=== PATIENT | female | born 1945 | race Two or more races ===

== ENCOUNTER 2024-01-01 09:15 | Outpatient (AMB) | payer OTHER, MEDICAID, SELFPAY ==
[2024-01-01 09:32] VITALS: BP 143/59; PULSE 61; RESP 18; TEMP 36.3; O2SAT 97; BMI 30.9
--- NOTE | 2024-01-01 09:32 | ORTHONT_ITS ---
Vital signs 01/01/24 09:32 Height 1.52 m Height Method Stated Weight 71.809 kg Weight Measurement Method Standing Scale BMI 30.9 BP 143/59 H Blood Pressure Source Automatic Cuff Blood Pressure Location Right Upper Arm Position Sitting Respiration 18 Pulse 61 Pulse Source Monitor Temp 97.3 F Temp Source Temporal Artery Scan Pulse Oximetry (%) 97 Oxygen Delivery Method Room Air Med/Allergies Allergies & Medications Allergies PCN Allergy (Mild, Uncoded 01/01/24 09:36) Rash Medication Reconciliation levothyroxine 25 mcg capsule 25 mcg PO QDAY 05/23/21 [History Confirmed 01/01/24] metformin 1,000 mg tablet 1,000 mg PO QDAY 05/23/21 [History Confirmed 01/01/24] estradiol 0.01% (0.1 mg/gram) vaginal cream (Estrace) 2 g vaginal DIRECTED 12/10/21 [History Confirmed 01/01/24] aspirin 81 mg tablet,delayed release 81 mg PO QDAY 07/03/23 [History Confirmed 07/03/23] atorvastatin 20 mg tablet 20 mg PO QDAY 01/01/24 [History Confirmed 01/01/24] baclofen 10 mg/5 mL (2 mg/mL) oral solution 10 mg PO QDAY 01/01/24 [History Confirmed 01/01/24] gabapentin 100 mg capsule 100 mg PO QDAY 01/01/24 [History Confirmed 01/01/24] glipizide 5 mg tablet 5 mg PO QDAY 01/01/24 [History Confirmed 01/01/24] lisinopril 10 mg tablet 10 mg PO QDAY 01/01/24 [History Confirmed 01/01/24] pantoprazole 20 mg tablet,delayed release 20 mg PO QDAY 01/01/24 [History Confirmed 01/01/24] Subjective Visit Visit for: new patient and knee Immunization / Flu Flu Vaccine in the Last 12 Months: No Flu Vaccine Exclusion Criteria: No Exclusion Criteria History of Present Illness Chief complaint: BILATERAL KNEE PAIN Patient is a pleasant 78-year-old female with bilateral knee pain worse on the left. She has a history of [id number] arthritis. She also has a history of diabetic neuropathy and numbness in her hands and legs. Her current A1c is controlled and is 7.2. She does have a history of varicose veins and has vitiligo. We discussed that she has tried multiple injections in the past clued hyaluronic acid cortisone injections and anti-inflammatories as well as physical therapy. She reports the pain is making her life miserable. Personal History Occupation: RETIRED Pain Pain level (0-10): 5 Pain duration: COMES AND GOES Pain location: anterior and posterior Pain quality: sharp, dull and aching Pain timing: increases with activity Ambulatory data Ambulatory device: cane Treatments Number of previous injections: 3 Improvement with previous injections: Yes Improvement with PT: No Improvement with NSAIDS: n/a Review of Systems Review of Systems: All systems negative unless otherwise noted in HPI. Exam Exam Patient is in no acute distress and is cooperative with the examination today. Breathing is nonlabored. In no respiratory distress. Bilateral extremities were evaluated and demonstrates sensation intact to light touch. Palpable pedal pulses are present. No significant edema is present. Bilateral hips were examined. The patient has no pain with log roll of the hips. Internal rotation to 30 degrees and external rotation to 30 degrees is painless. Negative FADIR. The left knee was examined. The left knee is in [varus] alignment. Range of motion from [0-115] degrees. Knee is stable to varus and valgus as well as AP translation with <5mm. Patient has a [negative] McMurrays. There is [no] pain with patellofemoral compression and [no] crepitus noted. The knee is [tender] to palpation [medially]. The right knee was also examined. The right knee is in [varus] alignment. Range of motion from [0-120] degrees. Knee is stable to varus and valgus as well as AP translation with <5mm. Patient has a [negative] McMurrays. There is [no] pain with patellofemoral compression and [no] crepitus noted. The knee is [tender] to palpation [medially]. X-rays demonstrate bilateral knee arthritis with significant varus deformity and medial compartment arthritis. Assessment and Plan Problem List (1) Degenerative arthritis of knee, bilateral: Status: Acute Plan: Patient is a pleasant 78-year-old female with bilateral knee arthritis worse on the left. She is complete joint space obliteration and the pain is affecting her quality life and happiness. She is tried multiple hyaluronic acid injections as well as cortisone injections and physical therapy and anti- inflammatories. She would like to proceed with surgery on the left. We discussed that we would like for her to go home if possible. The nature and purpose of the total knee replacement, alternative method(s) of treatment, the material risks involved, and the possibility of complications were fully explained to the patient. The patient does NOT have any of the following contraindications to TKA: - Active infection of the knee joint, OR - Active systemic bacteremia, OR - Active skin infection or open wound at surgical site, OR - Neuropathic arthritis, OR - Severe, rapidly progressive neurological disease, OR - Severe medical condition that makes risks of surgery outweigh the potential benefit The patient was told the most common risks and complications associated with a total knee replacement include, but are not limited to: blood clots in the leg, fatal pulmonary embolism, dislocation of the prosthesis, intraoperative and postoperative fractures of the femur or tibia, infection, failure of the prost hesis or grafting materials, complications from anesthesia, reactions to blood transfusions, postoperative leg length inequality, instability of the knee replacement, nerve damage or injury, vascular injury, delayed wound healing, infection, other injury or even . In addition, there are risks associated with anesthesia given during this operation. Also, the patient was told that after undergoing a total knee replacement there may still be persistent pain or disability. The patient was informed that the success of this operation in part depends upon the mechanical devices which are going to be implanted and that these devices can fail or malfunction, and may need to be repaired or replaced and there are no guarantees as to the longevity of this device or its parts and that it or its parts could fail prematurely. The patient was also notified that during the course of surgery, there may be a need to use bone graft from donors, and that any bone graft used will be carefully screened for communicable diseases, including AIDS, hepatitis, Yoni-Creutzfeldt, or other diseases, but despite the screening procedures, there is a small chance that they could contract one of these diseases. Finally, the patient was asked to follow completely and fully with all advice and recommended treatments, and that recovery and ultimate outcome are affected by their compliance with recommended treatment. We discussed the risks, benefits and treatment alternatives, and the patient is interested in proceeding with surgery. We will try to set this up as expeditiously as possible. Advanced Care Planning Discussion Advance care planning discussed with:: patient Office Procedures GNS Level of Care Nursing/Assessment Patient Status: Established Patient Nursing Assessment/Reassesment: Medication Reconciliation, Update PMH in EMR and Vital Signs Coordination of Care: Complex Care and Chronic Disease 1-5, Education Complex Pt/Fam, Consent,records obtained, informed consent, Results/Orders obtained and Staff clarify orders Established Patient Charge Established Patient Point Assignment: 95 Established Patient Point Charge: EP Level 3 (80-115) Past Medical History Past Medical History Have you ever been diagnosed with any of the following: Cardiology Problems Hypertension: Yes Respiratory Problems Smoking: No Smoking Exposure: No Endocrine Problems Diabetes Mellitus Type 2: Yes
== END 2024-01-01 10:38 | disposition home or self-care (01) ==
LOC: HODSRG 09:15
PROVIDERS: PCP Internal Medicine; Referring Provider Internal Medicine; Supervising Provider Orthopaedic Surgery Adult Reconstructive Orthopaedic Surgery; Visit Provider Orthopaedic Surgery Adult Reconstructive Orthopaedic Surgery
DX: M17.0 Bilateral primary osteoarthritis of knee (principal); I10 Essential (primary) hypertension; E11.9 Type 2 diabetes mellitus without complications
CPT/HCPCS: 99213; G0463

== ENCOUNTER → 2024-01-13 | Outpatient (CLI) | payer OTHER, MEDICAID, SELFPAY ==
[2024-01-13 11:00] LABS: Collection Type, Urine Clean Catch
[2024-01-13 11:14] LABS: Basophils % (Auto) 1 % (0-2.5); Eosinophils # (Auto) 0.1 Thou/mm3 (0.0-0.5); Eosinophils % (Auto) 1 % (0-10); Hematocrit 34.7 % (36.0-46.0); Hemoglobin 12.1 g/dL (12.0-16.0); Immature Granulocytes % (Auto) 0 % (0-0); Immature Granulocytes Auto 0.02 Thou/mm3 (0.00-0.00); Lymphocytes # (Auto) 1.7 Thou/mm3 (1.0-4.8); Lymphocytes % (Auto) 30 % (10-50); Mean Corpuscular HGB Conc 34.9 g/dl (31.0-37.0); Mean Corpuscular Hemoglobin 28.3 pg (25.0-35.0); Mean Corpuscular Volume 81 fL (80-100); Monocytes # (Auto) 0.4 Thou/mm3 (0.0-0.8); Monocytes % (Auto) 8 % (0-12); Neutrophils # (Auto) 3.4 Thou/mm3 (1.8-7.7); Neutrophils % (Auto) 60 % (37-80); Nucleated Red Blood Cell % 0 /100 WBC (0); Platelet Count 245 Thou/mm3 (140-440); RDW Standard Deviation 39.9 fL (36.4-46.3); Red Blood Count 4.28 Miln/mm3 (4.00-5.20); White Blood Count 5.6 Thou/mm3 (3.6-11.0)
[2024-01-13 11:18] LABS: Bacteria,Urine 3+; Bilirubin,Urine Negative (Negative); Blood,Urine Negative (Negative); Clarity,Urine Clear (Clear/Hazy); Color,Urine Lt-Yellow (Lt Yel-Yel); Glucose, Urine Negative (Negative); Hyaline Casts,Urine < 1 /hpf (0-1); Ketones,Urine Negative (Negative); Leukocyte Esterase,Urine Positive (Negative); Nitrite,Urine Negative (Negative); PH,Urine 7.5 (5.0-7.0); Protein,Urine Negative (Neg - Trace); RBC,Urine 6 /hpf (0-3); Specific Gravity,Urine 1.012 (1.001-1.035); Squamous Epithelial Cell,Urine < 1 /hpf (0-5); Urobilinogen,Urine Negative mg/dL (0.0-1.0); WBC,Urine 71 /hpf (0-5)
[2024-01-13 11:28] LABS: Creatinine MALB Rnd Ur 49 mg/dL (30-125); Microalbumin, Random Urine < 3 mg/L (0-300)
[2024-01-13 11:32] LABS: Glucose Estimated Average 146 mg/dL (80-131); Hemoglobin A1C 6.7 % Hgb (4.8-6.0)
[2024-01-13 11:36] LABS: Alanine Aminotransferase 13 U/L (10-49); Albumin, Serum 4.6 gm/dL (3.4-4.8); Albumin/Globulin Ratio 1.9 (1.2-2.2); Alkaline Phosphatase 87 U/L (46-116); Anion Gap 7 (7-16); Aspartate Amino Transferase 20 U/L (0-34); BUN/Creatinine Ratio 13 Ratio (12-20); Bilirubin,Total 0.9 mg/dL (0.3-1.2); Blood Urea Nitrogen 8 mg/dL (9-23); Calcium 9.5 mg/dL (8.3-10.6); Calcium (Corrected) 9.5 mg/dL (8.5-10.1); Cardiac Risk Estimate 3.4 RATIO (3.7-5.6); Chloride 96 mMol/L (98-107); Cholesterol 189 mg/dL (132-200); Creatinine (Component) 0.6 mg/dL (0.6-1.3); Globulin 2.4 gm/dL (2.3-3.5); Glucose 157 mg/dL (74-106); HDL Cholesterol 55 mg/dL (40-60); LDL Cholesterol,Calculated 113 mg/dL (0-130); Osmolality,Calculated 262 (275-295); Potassium 4.9 mMol/L (3.4-5.1); Sodium 130 mMol/L (136-145); Thyroid Stimulating Hormone 0.61 uIU/mL (0.55-4.78); Triglycerides 104 mg/dL (30-150); eGFR > 60 See Note
== END | disposition home or self-care (01) ==
PROVIDERS: PCP Internal Medicine; Referring Provider Internal Medicine; Visit Provider Internal Medicine
DX: E11.9 Type 2 diabetes mellitus without complications (principal); E07.9 Disorder of thyroid, unspecified; E78.5 Hyperlipidemia, unspecified; I10 Essential (primary) hypertension
CPT/HCPCS: 36415; 80053; 80061; 81001; 82043; 82570; 83036; 84443; 85025

== ENCOUNTER → 2024-03-17 | Outpatient (CLI) | payer OTHER, MEDICAID, SELFPAY ==
[2024-03-17 13:09] LABS: Collection Type, Urine Clean Catch
[2024-03-17 13:41] LABS: Bilirubin,Urine Negative (Negative); Blood,Urine Negative (Negative); Clarity,Urine Clear (Clear/Hazy); Color,Urine Lt-Yellow (Lt Yel-Yel); Glucose, Urine Negative (Negative); Ketones,Urine Negative (Negative); Leukocyte Esterase,Urine Positive (Negative); Nitrite,Urine Negative (Negative); Protein,Urine Negative (Neg - Trace); RBC,Urine 1 /hpf (0-3); Squamous Epithelial Cell,Urine 4 /hpf (0-5); Urobilinogen,Urine Negative mg/dL (0.0-1.0); WBC,Urine 18 /hpf (0-5)
[2024-03-17 14:12] LABS: Culture Indicated,Urine Yes
== END | disposition home or self-care (01) ==
LOC: SLDO 12:53
PROVIDERS: Referring Provider Internal Medicine; Visit Provider Internal Medicine
DX: N39.0 Urinary tract infection, site not specified (principal)
CPT/HCPCS: 81001; 87086

== ENCOUNTER → 2024-04-18 | Outpatient (CLI) | payer OTHER, MEDICAID, SELFPAY ==
[2024-04-18 15:33] LABS: Basophils % (Auto) 0 % (0-2.5); Eosinophils # (Auto) 0.1 Thou/mm3 (0.0-0.5); Eosinophils % (Auto) 1 % (0-10); Hematocrit 34.6 % (36.0-46.0); Hemoglobin 11.9 g/dL (12.0-16.0); Immature Granulocytes % (Auto) 0 % (0-0); Immature Granulocytes Auto 0.04 Thou/mm3 (0.00-0.00); Lymphocytes % (Auto) 23 % (10-50); Mean Corpuscular HGB Conc 34.4 g/dl (31.0-37.0); Mean Corpuscular Hemoglobin 28.3 pg (25.0-35.0); Mean Corpuscular Volume 82 fL (80-100); Monocytes # (Auto) 0.5 Thou/mm3 (0.0-0.8); Monocytes % (Auto) 6 % (0-12); Neutrophils # (Auto) 6.3 Thou/mm3 (1.8-7.7); Neutrophils % (Auto) 70 % (37-80); Nucleated Red Blood Cell % 0 /100 WBC (0); Platelet Count 274 Thou/mm3 (140-440); RDW Standard Deviation 41.1 fL (36.4-46.3); Red Blood Count 4.21 Miln/mm3 (4.00-5.20); White Blood Count 9.1 Thou/mm3 (3.6-11.0)
[2024-04-18 15:41] LABS: INR 1.1 (0.9-1.3); Prothrombin Time 11.7 Seconds (9.0-12.2)
[2024-04-18 15:44] LABS: Glucose Estimated Average 151 mg/dL (80-131); Hemoglobin A1C 6.9 % Hgb (4.8-6.0)
[2024-04-18 15:48] LABS: Alanine Aminotransferase 11 U/L (10-49); Albumin, Serum 4.5 gm/dL (3.4-4.8); Albumin/Globulin Ratio 1.9 (1.2-2.2); Alkaline Phosphatase 73 U/L (46-116); Anion Gap 7 (7-16); Aspartate Amino Transferase 18 U/L (0-34); BUN/Creatinine Ratio 22 Ratio (12-20); Bilirubin,Direct 0.2 mg/dL (0.0-0.3); Bilirubin,Total 0.6 mg/dL (0.3-1.2); Blood Urea Nitrogen 11 mg/dL (9-23); Calcium 9.6 mg/dL (8.3-10.6); Calcium (Corrected) 9.6 mg/dL (8.5-10.1); Carbon Dioxide 27.6 mMol/L (20.0-31.0); Cardiac Risk Estimate 3.1 RATIO (3.7-5.6); Chloride 99 mMol/L (98-107); Cholesterol 205 mg/dL (132-200); Creatinine (Component) 0.5 mg/dL (0.6-1.3); Globulin 2.4 gm/dL (2.3-3.5); Glucose 121 mg/dL (74-106); HDL Cholesterol 66 mg/dL (40-60); LDL Cholesterol,Calculated 111 mg/dL (0-130); Osmolality,Calculated 268 (275-295); Potassium 4.8 mMol/L (3.4-5.1); Sodium 134 mMol/L (136-145); Total Protein 6.9 gm/dL (5.7-8.2); Triglycerides 140 mg/dL (30-150); eGFR > 60 See Note
[2024-04-18 15:50] LABS: Creatinine MALB Rnd Ur 60 mg/dL (30-125); Microalbumin, Random Urine < 3 mg/L (0-300)
== END | disposition home or self-care (01) ==
LOC: COPL 14:22
PROVIDERS: PCP Internal Medicine; Referring Provider Internal Medicine; Visit Provider Internal Medicine
DX: E11.9 Type 2 diabetes mellitus without complications (principal); I10 Essential (primary) hypertension; E78.5 Hyperlipidemia, unspecified
CPT/HCPCS: 36415; 80053; 80061; 82043; 82248; 82570; 83036; 85025; 85610; 85730

== ENCOUNTER 2024-04-28 15:21 | Outpatient (AMB) | payer OTHER, MEDICAID, SELFPAY ==
[2024-04-28 15:35] VITALS: BP 127/74; PULSE 60; RESP 19; TEMP 36; O2SAT 97; BMI 31.1
--- NOTE | 2024-04-28 15:35 | PD.ORTHCLVIS ---
Vital signs 04/28/24 15:35 Height 1.52 m Height Method Stated Weight 71.894 kg Weight Measurement Method Standing Scale BMI 31.1 BP 127/74 Blood Pressure Source Automatic Cuff Blood Pressure Location Left Upper Arm Position Sitting Respiration 19 Pulse 60 Pulse Source Monitor Temp 96.8 F Temp Source Temporal Artery Scan Pulse Oximetry (%) 97 Oxygen Delivery Method Room Air Med/Allergies Allergies & Medications Allergies PCN Allergy (Mild, Uncoded 04/28/24 15:36) Rash Medication Reconciliation levothyroxine 25 mcg capsule 25 mcg PO QDAY 05/23/21 [History Confirmed 04/28/24] metformin 1,000 mg tablet 1,000 mg PO QDAY 05/23/21 [History Confirmed 04/28/24] estradiol 0.01% (0.1 mg/gram) vaginal cream (Estrace) 2 g vaginal DIRECTED 12/10/21 [History Confirmed 04/28/24] aspirin 81 mg tablet,delayed release 81 mg PO QDAY 07/03/23 [History Confirmed 04/28/24] atorvastatin 20 mg tablet 20 mg PO QDAY 01/01/24 [History Confirmed 04/28/24] baclofen 10 mg/5 mL (2 mg/mL) oral solution 10 mg PO QDAY 01/01/24 [History Confirmed 04/28/24] gabapentin 100 mg capsule 100 mg PO QDAY 01/01/24 [History Confirmed 04/28/24] glipizide 5 mg tablet 5 mg PO QDAY 01/01/24 [History Confirmed 04/28/24] lisinopril 10 mg tablet 10 mg PO QDAY 01/01/24 [History Confirmed 04/28/24] pantoprazole 20 mg tablet,delayed release 20 mg PO QDAY 01/01/24 [History Confirmed 04/28/24] Exam Exam Patient is in no acute distress and is cooperative with the examination today. Breathing is nonlabored. In no respiratory distress. Bilateral extremities were evaluated and demonstrates sensation intact to light touch. Palpable pedal pulses are present. No significant edema is present. Bilateral hips were examined. The patient has no pain with log roll of the hips. Internal rotation to 30 degrees and external rotation to 30 degrees is painless. Negative FADIR. The left knee was examined. The left knee is in [varus] alignment. Range of motion from [0-115] degrees. Knee is stable to varus and valgus as well as AP translation with <5mm. Patient has a [negative] McMurrays. There is [no] pain with patellofemoral compression and [no] crepitus noted. The knee is [tender] to palpation [medially]. The right knee was also examined. The right knee is in [varus] alignment. Range of motion from [0-120] degrees. Knee is stable to varus and valgus as well as AP translation with <5mm. Patient has a [negative] McMurrays. There is [no] pain with patellofemoral compression and [no] crepitus noted. The knee is [tender] to palpation [medially]. X-rays demonstrate bilateral knee arthritis with significant varus deformity and medial compartment arthritis. Assessment and Plan Problem List (1) Degenerative arthritis of knee, bilateral: Status: Acute Plan: Patient is a pleasant 78-year-old female with bilateral knee arthritis worse on the left. She is complete joint space obliteration and the pain is affecting her quality life and happiness. She would like bilateral knee injections today. She would like to get surgery around the summertime as her son is a professor. Recommend knee cortisone injections as patient would like to proceed with conservative treatment at this time. The risks and benefits of the procedure were reviewed with the patient and patient gave verbal consent to continue with the procedure. Procedure: performed by Dr. Barakat Using sterile technique the Bilateral knees were thoroughly prepped with alcohol, and approximately 1 cc of Kenalog 40 mg/mL and 4 cc of 1% lidocaine was injected into each knee without resistance into the medial tibial femoral joint space. The patient tolerated the procedure. Advanced Care Planning Discussion Advance care planning discussed with:: patient Office Procedures GNS Level of Care Nursing/Assessment Patient Status: Established Patient Nursing Assessment/Reassesment: Medication Reconciliation, Update PMH in EMR and Vital Signs Coordination of Care: Complex Care and Chronic Disease 1-5, Education Complex Pt/Fam, Consent,records obtained, informed consent, Results/Orders obtained and Staff clarify orders Established Patient Charge Established Patient Point Assignment: 95 Established Patient Point Charge: EP Level 3 (80-115) Surgical Proc/IM SQ injection Major Surgical Procedure: Yes (BILATERAL KNEE INJECTION) Medication Given Medication Given Medication Given: Yes Documented Dose Given: 8 Route: Infiitration Medication Given Medication Given Medication Given: Yes Documented Dose Given: 2 Route: Infiitration Office Meds Xylocaine 10 mg/mL (1 %) injection solution Performing Provider: Malik Barakat MD Performing Location: [facility] Administered by: Malik Barakat MD on 04/28/24 15:51 Dose Route Admin Location Dispensed Lot Number Expiration Date [facility] [employer] 40 mL Infiltration 40 mL [id number] 08/16/27 25707-874-20 [facility] triamcinolone acetonide 40 mg/mL suspension for injection Performing Provider: Malik Barakat MD Performing Location: [facility] Administered by: Malik Barakat MD on 04/28/24 15:51 Dose Route Admin Location Dispensed Lot Number Expiration Date [facility] [employer] 80 mg intra-articular 2 mL [id number] 10/15/25 8269-2050-78 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 [place] Intake Visit Data Collection New Patient or Established: Established Patient (seen at [facility] within 3 years) Reason for Visit:: BL KNEE PAIN F/U Seen by Clinical Staff ONLY (RN/MA): No Wine Maker Required: No PCP or OBGYN visit in last 3 months: Yes Hx Now: No Do You Feel Safe at Home: Yes Authorities Contacted: N/A Questionairres Past Medical History Past Medical History Have you ever been diagnosed with any of the following: Cardiology Problems Hypertension: Yes Respiratory Problems Smoking: No Smoking Exposure: No Endocrine Problems Diabetes Mellitus Type 2: Yes Subjective Visit Visit for: follow up visit and knee Immunization / Flu Flu Vaccine in the Last 12 Months: No Flu Vaccine Exclusion Criteria: No Exclusion Criteria History of Present Illness Chief complaint: bilateral knee pain MS alejandro 78-year-old female with bilateral knee pain and bilateral knee arthritis. This has been ongoing for several years. She had a cardiac clearance done over a year ago. Since then she is not sure if she will clear again. She would like to get rid stratified again which I think is reasonable. She is failed conservative treatment. She would like bilateral knee injections today which is reasonable. X-rays demonstrate bilateral knee arthritis of significant severity. Pain Pain level (0-10): 10 Pain duration: CONSTANT Pain location: inside (medial), outside (lateral) and anterior Pain quality: sharp and dull Pain timing: increases with activity and stairs Associated signs & symptoms: weakness Ambulatory data Ambulatory device: cane Treatments Improvement with previous injections: No Improvement with PT: No Improvement with NSAIDS: no Review of Systems Review of Systems: All systems negative unless otherwise noted in HPI.
== END 2024-04-28 15:56 | disposition home or self-care (01) ==
LOC: HODSRG 15:21
PROVIDERS: PCP Internal Medicine; Supervising Provider Orthopaedic Surgery Adult Reconstructive Orthopaedic Surgery; Visit Provider Orthopaedic Surgery Adult Reconstructive Orthopaedic Surgery
DX: M17.0 Bilateral primary osteoarthritis of knee (principal); I10 Essential (primary) hypertension
CPT/HCPCS: 20610; 99213; J3301; J3490; G0463

== ENCOUNTER → 2024-05-13 | Outpatient (CLI) | payer OTHER, MEDICAID, SELFPAY ==
[2024-05-13 16:37] LABS: Collection Type, Urine Clean Catch
[2024-05-13 17:47] LABS: Bacteria,Urine Rare; Bilirubin,Urine Negative (Negative); Blood,Urine Negative (Negative); Clarity,Urine Clear (Clear/Hazy); Color,Urine Lt-Yellow (Lt Yel-Yel); Glucose, Urine Negative (Negative); Ketones,Urine Negative (Negative); Leukocyte Esterase,Urine Positive (Negative); Nitrite,Urine Negative (Negative); Protein,Urine Negative (Neg - Trace); RBC,Urine 3 /hpf (0-3); Specific Gravity,Urine 1.008 (1.001-1.035); Squamous Epithelial Cell,Urine < 1 /hpf (0-5); Urobilinogen,Urine Negative mg/dL (0.0-1.0); WBC,Urine 27 /hpf (0-5)
[2024-05-13 17:54] LABS: Culture Indicated,Urine Yes
== END | disposition home or self-care (01) ==
PROVIDERS: PCP Internal Medicine; Referring Provider Internal Medicine; Visit Provider Internal Medicine
DX: N39.0 Urinary tract infection, site not specified (principal)
CPT/HCPCS: 81001; 87077; 87086; 87186

== ENCOUNTER → 2024-06-14 | Outpatient (CLI) | payer OTHER, MEDICAID, SELFPAY ==
[2024-06-14 10:06] LABS: Collection Type, Urine Clean Catch
[2024-06-14 10:43] LABS: Bacteria,Urine 1+; Bilirubin,Urine Negative (Negative); Blood,Urine Negative (Negative); Clarity,Urine Clear (Clear/Hazy); Color,Urine Yellow (Lt Yel-Yel); Glucose, Urine Negative (Negative); Ketones,Urine Negative (Negative); Leukocyte Esterase,Urine Positive (Negative); Nitrite,Urine Negative (Negative); Protein,Urine Negative (Neg - Trace); RBC,Urine 4 /hpf (0-3); Specific Gravity,Urine 1.014 (1.001-1.035); Squamous Epithelial Cell,Urine 1 /hpf (0-5); Urobilinogen,Urine Negative mg/dL (0.0-1.0); WBC,Urine 32 /hpf (0-5)
[2024-06-14 10:44] LABS: Culture Indicated,Urine Yes
== END | disposition home or self-care (01) ==
LOC: SLDO 09:50
PROVIDERS: PCP Internal Medicine; Referring Provider Internal Medicine; Visit Provider Internal Medicine
DX: N39.0 Urinary tract infection, site not specified (principal)
CPT/HCPCS: 81001; 87077; 87086; 87186

== ENCOUNTER → 2024-06-29 | Outpatient (CLI) | payer OTHER, MEDICAID, SELFPAY ==
--- NOTE | 2024-06-29 14:00 | XR_ITS ---
Examination: Retroperitoneal ultrasound, complete Technique: Multiple high resolution grayscale images of the retroperitoneum obtained, including kidneys and bladder. Exam date and time:June 29, 2024 1407 hours INDICATIONS: Bilateral flank pain beginning 4 years ago FINDINGS: Right kidney 10.9 cm cortex 1.6 cm Left kidney 12.0 cm cortex 2.1 cm Left renal lower pole cyst 7 mm Multiple left renal calculi, the largest in the lower pole 5 x 5 mm Moderate renal parenchymal scar formation Minimal right hydronephrosis No bladder mass or bladder calculi Bladder prevoid volume 97 cc IMPRESSION: Minimal right hydronephrosis Multiple nonobstructing left renal calculus
== END | disposition home or self-care (01) ==
PROVIDERS: PCP Internal Medicine; Referring Provider Internal Medicine; Visit Provider Internal Medicine
DX: N13.30 Unspecified hydronephrosis (principal); N20.0 Calculus of kidney
CPT/HCPCS: 76770

== ENCOUNTER 2024-07-07 13:20 | Outpatient (AMB) | payer OTHER, MEDICAID, SELFPAY ==
[2024-07-07 13:31] VITALS: BP 117/73; PULSE 74; RESP 18; TEMP 36; O2SAT 97; BMI 29.7
--- NOTE | 2024-07-07 13:31 | PD.ORTHCLVIS ---
Vital signs 07/07/24 13:31 Height 1.52 m Height Method Stated Weight 68.634 kg Weight Measurement Method Standing Scale BMI 29.7 BP 117/73 Blood Pressure Source Automatic Cuff Blood Pressure Location Left Upper Arm Position Sitting Respiration 18 Pulse 74 Pulse Source Monitor Temp 96.8 F Temp Source Temporal Artery Scan Pulse Oximetry (%) 97 Oxygen Delivery Method Room Air Med/Allergies Allergies & Medications Allergies PCN Allergy (Mild, Uncoded 07/07/24 13:32) Rash Medication Reconciliation levothyroxine 25 mcg capsule 25 mcg PO QDAY 05/23/21 [History Confirmed 07/07/24] metformin 1,000 mg tablet 1,000 mg PO QDAY 05/23/21 [History Confirmed 07/07/24] estradiol 0.01% (0.1 mg/gram) vaginal cream (Estrace) 2 g vaginal DIRECTED 12/10/21 [History Confirmed 07/07/24] aspirin 81 mg tablet,delayed release 81 mg PO QDAY 07/03/23 [History Confirmed 07/07/24] atorvastatin 20 mg tablet 20 mg PO QDAY 01/01/24 [History Confirmed 07/07/24] baclofen 10 mg/5 mL (2 mg/mL) oral solution 10 mg PO QDAY 01/01/24 [History Confirmed 07/07/24] gabapentin 100 mg capsule 100 mg PO QDAY 01/01/24 [History Confirmed 07/07/24] glipizide 5 mg tablet 5 mg PO QDAY 01/01/24 [History Confirmed 07/07/24] lisinopril 10 mg tablet 10 mg PO QDAY 01/01/24 [History Confirmed 07/07/24] pantoprazole 20 mg tablet,delayed release 20 mg PO QDAY 01/01/24 [History Confirmed 07/07/24] Exam Exam Patient is in no acute distress and is cooperative with the examination today. Breathing is nonlabored. In no respiratory distress. Bilateral extremities were evaluated and demonstrates sensation intact to light touch. Palpable pedal pulses are present. No significant edema is present. Bilateral hips were examined. The patient has no pain with log roll of the hips. Internal rotation to 30 degrees and external rotation to 30 degrees is painless. Negative FADIR. The left knee was examined. The left knee is in [varus] alignment. Range of motion from [0-115] degrees. Knee is stable to varus and valgus as well as AP translation with <5mm. Patient has a [negative] McMurrays. There is [no] pain with patellofemoral compression and [no] crepitus noted. The knee is [tender] to palpation [medially]. The right knee was also examined. The right knee is in [varus] alignment. Range of motion from [0-120] degrees. Knee is stable to varus and valgus as well as AP translation with <5mm. Patient has a [negative] McMurrays. There is [no] pain with patellofemoral compression and [no] crepitus noted. The knee is [tender] to palpation [medially]. X-rays demonstrate bilateral knee arthritis with significant varus deformity and medial compartment arthritis. Assessment and Plan Problem List (1) Degenerative arthritis of knee, bilateral: Status: Acute Plan: Patient is a pleasant 78-year-old female with bilateral knee arthritis worse on the left. She is complete joint space obliteration and the pain is affecting her quality life and happiness. We just discussed total knee replacement. The right side is significantly worse and we will start with side. We have tried multiple injections as well as physical therapy and anti-inflammatories in the past The nature and purpose of the total knee replacement, alternative method(s) of treatment, the material risks involved, and the possibility of complications were fully explained to the patient. The patient does NOT have any of the following contraindications to TKA: - Active infection of the knee joint, OR - Active systemic bacteremia, OR - Active skin infection or open wound at surgical site, OR - Neuropathic arthritis, OR - Severe, rapidly progressive neurological disease, OR - Severe medical condition that makes risks of surgery outweigh the potential benefit The patient was told the most common risks and complications associated with a total knee replacement include, but are not limited to: blood clots in the leg, fatal pulmonary embolism, dislocation of the prosthesis, intraoperative and postoperative fractures of the femur or tibia, infection, failure of the prosthesis or grafting materials, complications from anesthesia, reactions to blood transfusions, postoperative leg length inequality, instability of the knee replacement, nerve damage or injury, vascular injury, delayed wound healing, infection, other injury or even . In addition, there are risks associated with anesthesia given during this operation. Also, the patient was told that after undergoing a total knee replacement there may still be persistent pain or disability. The patient was informed that the success of this operation in part depends upon the mechanical devices which are going to be implanted and that these devices can fail or malfunction, and may need to be repaired or replaced and there are no guarantees as to the longevity of this device or its parts and that it or its parts could fail prematurely. The patient was also notified that during the course of surgery, there may be a need to use bone graft from donors, and that any bone graft used will be carefully screened for communicable diseases, including AIDS, hepatitis, Yoni-Creutzfeldt, or other diseases, but despite the screening procedures, there is a small chance that they could contract one of these diseases. Finally, the patient was asked to follow completely and fully with all advice and recommended treatments, and that recovery and ultimate outcome are affected by their compliance with recommended treatment. We discussed the risks, benefits and treatment alternatives, and the patient is interested in proceeding with surgery. We will try to set this up as expeditiously as possible. Advanced Care Planning Discussion Advance care planning discussed with:: patient Office Procedures GNS Level of Care Nursing/Assessment Patient Status: Established Patient Nursing Assessment/Reassesment: Medication Reconciliation, Update PMH in EMR and Vital Signs Coordination of Care: Complex Care and Chronic Disease 1-5, Education Complex Pt/Fam, Consent,records obtained, informed consent, Results/Orders obtained and Staff clarify orders Established Patient Charge Established Patient Point Assignment: 95 Established Patient Point Charge: EP Level 3 (80-115) MA Intake Visit Data Collection Reason for Visit:: FOLLOW UP BL KNEE PAIN/R>L Seen by Clinical Staff ONLY (RN/MA): No Wallpaper Inspector And Shipper Required: No PCP or OBGYN visit in last 3 months: Yes Hx Now: No Do You Feel Safe at Home: Yes Authorities Contacted: N/A Questionairres Past Medical History Past Medical History Have you ever been diagnosed with any of the following: Cardiology Problems Hypertension: Yes Respiratory Problems Smoking: No Smoking Exposure: No Endocrine Problems Diabetes Mellitus Type 2: Yes Subjective Visit Visit for: follow up visit and knee Immunization / Flu Flu Vaccine in the Last 12 Months: No Flu Vaccine Exclusion Criteria: No Exclusion Criteria History of Present Illness Chief complaint: RIGHT WORSE THAN LEFT MS pleasant 78-year-old female with bilateral knee pain and bilateral knee arthritis. This has been ongoing for several years. She had a cardiac clearance done over a year ago. Since then she is not sure if she will clear again. She would like to get rid stratified again which I think is reasonable. She has failed conservative management. The right knee hurts significantly more than the left. We discussed doing knee replacement previously and she is waiting for her son to be out of school as he is a professor Pain Pain level (0-10): 6 Pain duration: CONSTANT Pain location: inside (medial) and anterior Pain quality: sharp, dull, aching and other (specify) (RUBBING) Pain timing: night, increases with activity and stairs Associated signs & symptoms: weakness Ambulatory data Ambulatory device: cane Treatments Improvement with previous injections: No Improvement with PT: No Improvement with NSAIDS: no Review of Systems Review of Systems: All systems negative unless otherwise noted in HPI.
== END 2024-07-07 13:42 | disposition home or self-care (01) ==
LOC: HODSRG 13:20
PROVIDERS: PCP Internal Medicine; Referring Provider Internal Medicine; Supervising Provider Orthopaedic Surgery Adult Reconstructive Orthopaedic Surgery; Visit Provider Orthopaedic Surgery Adult Reconstructive Orthopaedic Surgery
DX: M17.0 Bilateral primary osteoarthritis of knee (principal); M21.162 Varus deformity, not elsewhere classified, left knee; M21.161 Varus deformity, not elsewhere classified, right knee; I10 Essential (primary) hypertension; E11.9 Type 2 diabetes mellitus without complications
CPT/HCPCS: 99213; G0463

== ENCOUNTER → 2024-07-18 | Outpatient (CLI) | payer OTHER, MEDICAID, SELFPAY ==
[2024-07-18 13:26] LABS: Basophils % (Auto) 1 % (0-2.5); Eosinophils # (Auto) 0.1 Thou/mm3 (0.0-0.5); Eosinophils % (Auto) 1 % (0-10); Hematocrit 35.4 % (36.0-46.0); Immature Granulocytes % (Auto) 1 % (0-0); Immature Granulocytes Auto 0.04 Thou/mm3 (0.00-0.00); Lymphocytes # (Auto) 1.8 Thou/mm3 (1.0-4.8); Lymphocytes % (Auto) 22 % (10-50); Mean Corpuscular HGB Conc 33.9 g/dl (31.0-37.0); Mean Corpuscular Hemoglobin 29.3 pg (25.0-35.0); Mean Corpuscular Volume 86 fL (80-100); Monocytes # (Auto) 0.5 Thou/mm3 (0.0-0.8); Monocytes % (Auto) 6 % (0-12); Neutrophils # (Auto) 5.8 Thou/mm3 (1.8-7.7); Neutrophils % (Auto) 70 % (37-80); Nucleated Red Blood Cell % 0 /100 WBC (0); Platelet Count 286 Thou/mm3 (140-440); RDW Standard Deviation 44.5 fL (36.4-46.3); White Blood Count 8.2 Thou/mm3 (3.6-11.0)
[2024-07-18 13:36] LABS: INR 1.1 (0.9-1.3); Partial Thromboplastin Time 28.9 Seconds (22.0-36.0); Prothrombin Time 11.8 Seconds (9.0-12.2)
[2024-07-18 13:37] LABS: Alanine Aminotransferase 11 U/L (10-49); Albumin, Serum 4.2 gm/dL (3.4-4.8); Albumin/Globulin Ratio 1.9 (1.2-2.2); Alkaline Phosphatase 84 U/L (46-116); Anion Gap 8 (7-16); Aspartate Amino Transferase 16 U/L (0-34); BUN/Creatinine Ratio 16 Ratio (12-20); Bilirubin,Total 0.5 mg/dL (0.3-1.2); Blood Urea Nitrogen 8 mg/dL (9-23); Calcium 8.8 mg/dL (8.3-10.6); Calcium (Corrected) 8.8 mg/dL (8.5-10.1); Carbon Dioxide 26.6 mMol/L (20.0-31.0); Chloride 107 mMol/L (98-107); Creatinine (Component) 0.5 mg/dL (0.6-1.3); Globulin 2.2 gm/dL (2.3-3.5); Glucose 111 mg/dL (74-106); Osmolality,Calculated 282 (275-295); Potassium 4.4 mMol/L (3.4-5.1); Sodium 142 mMol/L (136-145); Total Protein 6.4 gm/dL (5.7-8.2); eGFR > 60 See Note
== END | disposition home or self-care (01) ==
PROVIDERS: PCP Internal Medicine; Referring Provider Internal Medicine; Visit Provider Internal Medicine
DX: Z00.00 Encounter for general adult medical examination without abnormal findings (principal); E11.42 Type 2 diabetes mellitus with diabetic polyneuropathy; I10 Essential (primary) hypertension; E78.5 Hyperlipidemia, unspecified
CPT/HCPCS: 36415; 80053; 85025; 85610; 85730

== ENCOUNTER → 2024-07-28 | Outpatient (CLI) | payer OTHER, MEDICAID, SELFPAY ==
--- NOTE | 2024-07-28 16:49 | XR_ITS ---
Examination: Bilateral knees 2 views Bilateral knee left lateral knee 2 views Bilateral axillae single view TECHNIQUE: Bilateral AP knees standing single view, bilateral PA knees standing single view flexion, Standing right laterally left lateral knee 2 views Bilateral axillae single view total 5 views Date and time: July 28, 2024 1714 hours INDICATIONS: Knee pain years. FINDINGS: Prominent osteopenia Bilateral severe narrowing medial joint spaces, bone on bone Advanced osteoarthritis patellofemoral and lateral joint spaces bilaterally No fractures or patellar dislocations IMPRESSION: Advanced tricompartment osteoarthritis including severe bilateral narrowing medial joint spaces, bone on bone
== END | disposition home or self-care (01) ==
PROVIDERS: PCP Internal Medicine; Referring Provider Orthopaedic Surgery Adult Reconstructive Orthopaedic Surgery; Visit Provider Orthopaedic Surgery Adult Reconstructive Orthopaedic Surgery
DX: M17.0 Bilateral primary osteoarthritis of knee (principal); M85.862 Other specified disorders of bone density and structure, left lower leg; M85.861 Other specified disorders of bone density and structure, right lower leg
CPT/HCPCS: 73564

== ENCOUNTER 2024-08-09 10:37 | Outpatient (AMB) | payer OTHER, MEDICAID, SELFPAY ==
[2024-08-09 10:51] VITALS: BP 147/78; PULSE 75; RESP 19; TEMP 36.8; O2SAT 97; BMI 30.1
--- NOTE | 2024-08-09 10:51 | PD.ORTHCLVIS ---
Vital signs 08/09/24 10:51 Height 1.52 m Height Method Stated Weight 69.541 kg Weight Measurement Method Standing Scale BMI 30.1 BP 147/78 H Blood Pressure Source Automatic Cuff Blood Pressure Location Left Upper Arm Position Sitting Respiration 19 Pulse 75 Pulse Source Monitor Temp 98.2 F Temp Source Temporal Artery Scan Pulse Oximetry (%) 97 Oxygen Delivery Method Room Air Med/Allergies Allergies & Medications Allergies PCN Allergy (Mild, Uncoded 08/09/24 10:52) Rash Medication Reconciliation levothyroxine 25 mcg capsule 25 mcg PO QDAY 05/23/21 [History Confirmed 08/09/24] metformin 1,000 mg tablet 1,000 mg PO QDAY 05/23/21 [History Confirmed 08/09/24] estradiol 0.01% (0.1 mg/gram) vaginal cream (Estrace) 2 g vaginal DIRECTED 12/10/21 [History Confirmed 08/09/24] aspirin 81 mg tablet,delayed release 81 mg PO QDAY 07/03/23 [History Confirmed 08/09/24] atorvastatin 20 mg tablet 20 mg PO QDAY 01/01/24 [History Confirmed 08/09/24] baclofen 10 mg/5 mL (2 mg/mL) oral solution 10 mg PO QDAY 01/01/24 [History Confirmed 08/09/24] gabapentin 100 mg capsule 100 mg PO QDAY 01/01/24 [History Confirmed 08/09/24] glipizide 5 mg tablet 5 mg PO QDAY 01/01/24 [History Confirmed 08/09/24] lisinopril 10 mg tablet 10 mg PO QDAY 01/01/24 [History Confirmed 08/09/24] pantoprazole 20 mg tablet,delayed release 20 mg PO QDAY 01/01/24 [History Confirmed 08/09/24] Exam Exam Patient is in no acute distress and is cooperative with the examination today. Breathing is nonlabored. In no respiratory distress. Bilateral extremities were evaluated and demonstrates sensation intact to light touch. Palpable pedal pulses are present. No significant edema is present. Bilateral hips were examined. The patient has no pain with log roll of the hips. Internal rotation to 30 degrees and external rotation to 30 degrees is painless. Negative FADIR. The left knee was examined. The left knee is in [varus] alignment. Range of motion from [0-115] degrees. Knee is stable to varus and valgus as well as AP translation with <5mm. Patient has a [negative] McMurrays. There is [no] pain with patellofemoral compression and [no] crepitus noted. The knee is [tender] to palpation [medially]. The right knee was also examined. The right knee is in [varus] alignment. Range of motion from [0-120] degrees. Knee is stable to varus and valgus as well as AP translation with <5mm. Patient has a [negative] McMurrays. There is [no] pain with patellofemoral compression and [no] crepitus noted. The knee is [tender] to palpation [medially]. X-rays demonstrate bilateral knee arthritis with significant varus deformity and medial compartment arthritis. Assessment and Plan Problem List (1) Degenerative arthritis of knee, bilateral: Status: Acute Plan: Patient is a pleasant 78-year-old female with bilateral knee arthritis worse on the left. She is complete joint space obliteration and the pain is affecting her quality life and happiness. We just discussed total knee replacement. The right side is significantly worse and we will start with side. We have tried multiple injections as well as physical therapy and anti-inflammatories in the past We will plan for surgery on the right knee. She would like a cortisone injection on the left knee as well today Recommend knee cortisone injection as patient would like to proceed with conservative treatment at this time. The risks and benefits of the procedure were reviewed with the patient and patient gave verbal consent to continue with the procedure. Procedure: performed by Dr. Barakat Using sterile technique the left knee was thoroughly prepped with alcohol, and approximately 1 cc of Kenalog 40 mg/mL and 4 cc of 1% lidocaine was injected without resistance into the medial tibial femoral joint space. The patient tolerated the procedure. The nature and purpose of the total knee replacement, alternative method(s) of treatment, the material risks involved, and the possibility of complications were fully explained to the patient. The patient does NOT have any of the following contraindications to TKA: - Active infection of the knee joint, OR - Active systemic bacteremia, OR - Active skin infection or open wound at surgical site, OR - Neuropathic arthritis, OR - Severe, rapidly progressive neurological disease, OR - Severe medical condition that makes risks of surgery outweigh the potential benefit The patient was told the most common risks and complications associated with a total knee replacement include, but are not limited to: blood clots in the leg, fatal pulmonary embolism, dislocation of the prosthesis, intraoperative and postoperative fractures of the femur or tibia, infection, failure of the prosthesis or grafting materials, complications from anesthesia, reactions to blood transfusions, postoperative leg length inequality, instability of the knee replacement, nerve damage or injury, vascular injury, delayed wound healing, infection, other injury or even . In addition, there are risks associated with anesthesia given during this operation. Also, the patient was told that after undergoing a total knee replacement there may still be persistent pain or disability. The patient was informed that the success of this operation in part depends upon the mechanical devices which are going to be implanted and that these devices can fail or malfunction, and may need to be repaired or replaced and there are no guarantees as to the longevity of this device or its parts and that it or its parts could fail prematurely. The patient was also notified that during the course of surgery, there may be a need to use bone graft from donors, and that any bone graft used will be carefully screened for communicable diseases, including AIDS, hepatitis, Yoni-Creutzfeldt, or other diseases, but despite the screening procedures, there is a small chance that they could contract one of these diseases. Finally, the patient was asked to follow completely and fully with all advice and recommended treatments, and that recovery and ultimate outcome are affected by their compliance with recommended treatment. We discussed the risks, benefits and treatment alternatives, and the patient is interested in proceeding with surgery. We will try to set this up as expeditiously as possible. Advanced Care Planning Discussion Advance care planning discussed with:: patient Office Procedures GNS Level of Care Nursing/Assessment Patient Status: Established Patient Nursing Assessment/Reassesment: Medication Reconciliation, Update PMH in EMR and Vital Signs Coordination of Care: Complex Care and Chronic Disease 1-5, Education Complex Pt/Fam, Consent,records obtained, informed consent, Results/Orders obtained and Staff clarify orders Established Patient Charge Established Patient Point Assignment: 95 Established Patient Point Charge: EP Level 3 (80-115) Surgical Proc/IM SQ injection Major Surgical Procedure: Yes (KNEE INJECTION) Medication Given Medication Given Medication Given: Yes Documented Dose Given: 4 Route: Infiitration Medication Given Medication Given Medication Given: Yes Documented Dose Given: 1 Route: Infiitration Office Meds Xylocaine 10 mg/mL (1 %) injection solution Performing Provider: Malik Barakat MD Performing Location: [facility] Administered by: Malik Barakat MD on 08/09/24 11:13 Dose Route Admin Location Dispensed Lot Number Expiration Date [facility] Toy [employer] Supervisor 20 mL Infiltration 20 mL [id number] 06/16/27 08552-131-39 [facility] triamcinolone acetonide 40 mg/mL suspension for injection Performing Provider: Malik Barakat MD Performing Location: [facility] Administered by: Malik Barakat MD on 08/09/24 11:13 Dose Route Admin Location Dispensed Lot Number Expiration Date [facility] Toy Assembly Supervisor 40 mg intra-articular KNEE 1 mL [id number] 03/17/26 55657-496-88 [employer] MA Intake Visit Data Collection New Patient or Established: Established Patient (seen at [facility] within 3 years) Reason for Visit:: PRE OP R TJA/LEFT KNEE INJ Seen by Clinical Staff ONLY (RN/MA): No PCP or OBGYN visit in last 3 months: Yes Hx Now: No Do You Feel Safe at Home: Yes Authorities Contacted: N/A Questionairres Past Medical History Past Medical History Have you ever been diagnosed with any of the following: Cardiology Problems Hypertension: Yes Respiratory Problems Smoking: No Smoking Exposure: No Endocrine Problems Diabetes Mellitus Type 2: Yes Subjective Visit Visit for: follow up visit, knee and injections Immunization / Flu Flu Vaccine in the Last 12 Months: No Flu Vaccine Exclusion Criteria: No Exclusion Criteria History of Present Illness Chief complaint: RIGHT WORSE THAN LEFT MS alejandro 78-year-old female with bilateral knee pain and bilateral knee arthritis. This has been ongoing for several years. She had a cardiac clearance done over a year ago. Since then she is not sure if she will clear again. She would like to get rid stratified again which I think is reasonable. She has failed conservative management. The right knee hurts significantly more than the left. We discussed doing knee replacement previously and she is waiting for her son to be out of school as he is a professor Pain Pain level (0-10): 8 Pain duration: ALL DAY Pain location: inside (medial) and anterior Pain quality: aching Pain timing: increases with activity Associated signs & symptoms: none Ambulatory data Ambulatory device: walker Treatments Improvement with previous injections: No Improvement with PT: No Improvement with NSAIDS: no Review of Systems Review of Systems: All systems negative unless otherwise noted in HPI.
== END 2024-08-09 11:16 | disposition home or self-care (01) ==
LOC: HODSRG 10:37
PROVIDERS: PCP Internal Medicine; Referring Provider Internal Medicine; Supervising Provider Orthopaedic Surgery Adult Reconstructive Orthopaedic Surgery; Visit Provider Orthopaedic Surgery Adult Reconstructive Orthopaedic Surgery
DX: M17.0 Bilateral primary osteoarthritis of knee (principal); M25.562 Pain in left knee; M25.561 Pain in right knee; E11.9 Type 2 diabetes mellitus without complications
CPT/HCPCS: 20610; 99213; J3301; J3490; G0463

== ENCOUNTER → 2024-08-18 | Outpatient (CLI) | payer OTHER, MEDICAID, SELFPAY ==
[2024-08-18 15:52] LABS: Collection Type, Urine Clean Catch
[2024-08-18 16:21] LABS: Bilirubin,Urine Negative (Negative); Blood,Urine Trace (Negative); Color,Urine Yellow (Lt Yel-Yel); Glucose, Urine Negative (Negative); Ketones,Urine Negative (Negative); Leukocyte Esterase,Urine Positive (Negative); Nitrite,Urine Negative (Negative); PH,Urine 7.0 (5.0-7.0); Protein,Urine Negative (Neg - Trace); RBC,Urine 10 /hpf (0-3); Specific Gravity,Urine 1.014 (1.001-1.035); Squamous Epithelial Cell,Urine 1 /hpf (0-5); Urobilinogen,Urine Negative mg/dL (0.0-1.0); WBC,Urine 1065 /hpf (0-5)
[2024-08-18 16:28] LABS: Clarity,Urine Cloudy (Clear/Hazy)
[2024-08-18 16:29] LABS: Culture Indicated,Urine Yes
== END | disposition home or self-care (01) ==
LOC: COPL 13:10
PROVIDERS: PCP Internal Medicine; Referring Provider Internal Medicine; Visit Provider Internal Medicine
DX: Z00.00 Encounter for general adult medical examination without abnormal findings (principal); N39.0 Urinary tract infection, site not specified
CPT/HCPCS: 81001; 83013; 83014; 87077; 87086; 87186

== ENCOUNTER → 2024-08-29 | Outpatient (CLI) | payer OTHER, MEDICAID, SELFPAY ==
--- NOTE | 2024-08-29 15:00 | XR_ITS ---
Examination: CT right lower extremity, without contrast. 2-D sagittal reconstructions. 2-D coronal reconstructions. 3-D reconstructions. Date and time of exam:August 29, 2024 1609 hours INDICATIONS: Diagnoses primary osteoarthritis right knee, right knee pain 2 years CTDI: vol (mGy):10.3 DLP: (mGycm):687 Technique: Multiple 1.25 mm axial sections of the right lower extremity without intravenous contrast have been obtained. 2-D sagittal and coronal reconstructions have been obtained. 3-D reconstructions have been obtained. Low dose protocols were performed. One or more of the following dose reduction techniques were used; automated exposure control, adjustment of the mA and/or KV according to patient size, use of iterative reconstruction technique. Findings: Moderate narrowing right hip joint Prominent osteopenia No right hip fracture or dislocation Severe narrowing medial joint space right knees Significant osteoarthritis lateral patellofemoral joints No fracture IMPRESSION: Advanced tricompartment osteoarthritis right knee
== END | disposition home or self-care (01) ==
LOC: CCTX 15:19
PROVIDERS: PCP Internal Medicine; Referring Provider Orthopaedic Surgery Adult Reconstructive Orthopaedic Surgery; Visit Provider Orthopaedic Surgery Adult Reconstructive Orthopaedic Surgery
DX: M17.11 Unilateral primary osteoarthritis, right knee (principal)
CPT/HCPCS: 73700

== ENCOUNTER → 2024-09-01 | Outpatient (BNVA) | payer OTHER, MEDICAID, SELFPAY | END | disposition home or self-care (01) | PROVIDERS: PCP Internal Medicine; Referring Provider Internal Medicine; Visit Provider Urology | DX: N39.0 Urinary tract infection, site not specified (principal); G89.4 Chronic pain syndrome; R10.2 Pelvic and perineal pain; E11.9 Type 2 diabetes mellitus without complications; I10 Essential (primary) hypertension; E66.9 Obesity, unspecified; Z68.30 Body mass index [BMI] 30.0-30.9, adult; E78.00 Pure hypercholesterolemia, unspecified | CPT/HCPCS: 81003; 99213; G0463 ==

== ENCOUNTER 2024-09-05 05:40 | Day surgery (SDC) | payer OTHER, MEDICAID, SELFPAY ==
--- NOTE | 2024-09-01 06:00 | EKG_ITS ---
[facility] Test Date: 2024-09-01 Pat Name: SEUN WITT Department: Room: - Gender: Female Historian Dramatic Arts: SULEMA : 1945 Requested By: Simone Medina Order Number: [id number] Reading MD: Simone Medina Measurements Intervals [place] Rate: 59 P: 62 CO: 160 QRS: -6 QRSD: 96 T: 15 QT: 381 QTc: 380 Interpretive Statements SINUS BRADYCARDIA LOW QRS VOLTAGE IN PRECORDIAL LEADS [QRS DEFLECTION < 1.0 mV IN CHEST LEADS] PATTERN CONSISTENT WITH PULMONARY DISEASE MODERATE T-WAVE ABNORMALITY, CONSIDER ANTERIOR ISCHEMIA [-0.1+ mV T WAVE IN V3/V4] No previous ECG available for comparison /store/S0/[id number].pdf
[2024-09-01 07:41] VITALS: BMI 27.8
[2024-09-01 08:47] LABS: Basophils # (Auto) 0.0 Thou/mm3 (0.0-0.2); Basophils % (Auto) 0 % (0-2.5); Eosinophils # (Auto) 0.1 Thou/mm3 (0.0-0.5); Eosinophils % (Auto) 1 % (0-10); Hematocrit 34.7 % (36.0-46.0); Hemoglobin 11.9 g/dL (12.0-16.0); Immature Granulocytes Auto 0.03 Thou/mm3 (0.00-0.00); Lymphocytes # (Auto) 1.7 Thou/mm3 (1.0-4.8); Lymphocytes % (Auto) 20 % (10-50); Mean Corpuscular HGB Conc 34.3 g/dl (31.0-37.0); Mean Corpuscular Hemoglobin 29.5 pg (25.0-35.0); Mean Corpuscular Volume 86 fL (80-100); Monocytes # (Auto) 0.5 Thou/mm3 (0.0-0.8); Monocytes % (Auto) 6 % (0-12); Neutrophils # (Auto) 6.1 Thou/mm3 (1.8-7.7); Neutrophils % (Auto) 72 % (37-80); Nucleated Red Blood Cell # 0.00 Thou/mm3 (0.00-0.00); Nucleated Red Blood Cell % 0 /100 WBC (0); Platelet Count 271 Thou/mm3 (140-440); RDW Standard Deviation 43.6 fL (36.4-46.3); Red Blood Count 4.03 Miln/mm3 (4.00-5.20); White Blood Count 8.4 Thou/mm3 (3.6-11.0)
[2024-09-01 08:53] LABS: INR 1.0 (0.9-1.3); Partial Thromboplastin Time 31.7 Seconds (22.0-36.0); Prothrombin Time 11.4 Seconds (9.0-12.2)
[2024-09-01 09:14] LABS: Alanine Aminotransferase 11 U/L (10-49); Albumin, Serum 4.2 gm/dL (3.4-4.8); Albumin/Globulin Ratio 1.8 (1.2-2.2); Alkaline Phosphatase 87 U/L (46-116); Anion Gap 6 (7-16); Aspartate Amino Transferase 18 U/L (0-34); BUN/Creatinine Ratio 20 Ratio (12-20); Bilirubin,Total 0.7 mg/dL (0.3-1.2); Blood Urea Nitrogen 10 mg/dL (9-23); Calcium 9.1 mg/dL (8.3-10.6); Calcium (Corrected) 9.1 mg/dL (8.5-10.1); Carbon Dioxide 26.6 mMol/L (20.0-31.0); Chloride 98 mMol/L (98-107); Creatinine (Component) 0.5 mg/dL (0.6-1.3); Estimated Creatinine Clearance 83.0 mL/min (>60); Globulin 2.4 gm/dL (2.3-3.5); Glucose 107 mg/dL (74-106); Osmolality,Calculated 261 (275-295); Potassium 4.4 mMol/L (3.4-5.1); Sodium 131 mMol/L (136-145); Total Protein 6.6 gm/dL (5.7-8.2); eGFR > 60 See Note
[2024-09-05] VITALS (14 sets, daily range): BP systolic 130–160; BP diastolic 54–68; PULSE 56–74; RESP 13–19; TEMP 36.2–37.4; O2SAT 96–100; BMI 27.7; BMI 15.0
[2024-09-05] MEDS: PREGABALIN 75 MG CAPSULE PO (06:24)
[2024-09-05] MEDS: ACETAMINOPHEN 325 MG TABLET 650 MG PO (06:24)
[2024-09-05] MEDS: MELOXICAM 7.5 MG TABLET PO (06:24)
--- NOTE | 2024-09-05 07:22 | SUR.PREOP ---
Patient expressed gratitude for prayer before their procedure.
--- NOTE | 2024-09-05 09:05 | ESOP_ITS ---
Date of Procedure 09/05/24 Pre Op Diagnosis right knee osteoarthritis Post Op Diagnosis right knee osteoarthritis Procedure right total knee osteoarthritis Findings full thickness cartilage loss and osteophytes Procedure Description Indication: The patient is a 78 year old who has a long history of right knee pain. X-rays show degenerative arthritis involving the knee. Over the past several years the patient has had increasing pain, progressive limitation in function. He has failed conservative measures including activity modification, physical therapy, injections, anti-inflammatories, and assistive devices. After a lengthy discussion of the risks and benefits, the patient presents now for total knee replacement. The nature and purpose of the total knee replacement, alternative method(s) of treatment, the material risks involved, and the possibility of complications were fully explained to the patient. The patient was told the most common risks and complications associated with a total knee replacement include, but are not limited to blood clots in the leg, fatal pulmonary embolism, dislocation of the prosthesis, intraoperative and postoperative fractures of the femur or tibia, infection, failure of the prosthesis or grafting materials, complications from anesthesia, reactions to blood transfusions, postoperative leg length inequality, instability of the knee replacement, nerve damage or injury, vascular injury, delayed wound healing, infections, other injury or even . In addition, there are risks associated with anesthesia given during this operation, temporary or permanent numbness on the skin lateral to the incision can be a complication unique to total knee surgery, and kneeling can be painful after knee replacement surgery. Also, the patient was told that after undergoing a total knee replacement there may still be pain or disability. We discussed with the patient that we will be using a robot-assisted technology. We discussed that there is a possibility of converting to manual instrumentation. The patient was informed that the success of this operation in part depends upon the mechanical devices which are going to be implanted and that these devices can fail or malfunction, and may need to be repaired or replaced and there are no guarantees as to the longevity of this device or its part and that it or its parts could fail prematurely. Finally, the patient was asked to follow completely and fully with all advice and recommended treatments, and that recovery and ultimate outcome are affected by their compliance with recommended treatment. Surgical technique: Patient was marked and consented in the pre-operative area. The patient was brought to the operating room and placed on the operating table in a supine position. Prior to positioning, a timeout procedure was performed between the surgeon, the anesthesiologist, and the nursing staff where the patient and the operative side were identified and confirmed. After adequate general anesthetic was obtained, the right lower extremity was prepped and draped in the usual sterile fashion. A weight based dose of Cefazolin were administered within 1 hour prior to incision. The robot was preregistered and calirated before the incision. The extremity was exsanguinated with an esmarch badge and tourniquet inflated to 250mmHg. A midline incision was made. A median parapatellar arthrotomy was made. The patella was subluxed laterally. A medial release was performed to expose the medial tibia. His femoral and tibial pins were placed through an intra incisional manner for both cases. Every effort was made to ensure that the distalmost aspect of the pin was hung in the second cortex. The arrays were then tightened several times to ensure that it was fixed for the remainder of the case. Both femoral and tibial checkpoints were then placed. We then went through the registration process of the bone. We then assessed the knee deformity and attempted to correct it. We also used the robot to aid in judging laxity in both extension and flexion. Final based on laxity and alignment we changed the preoperative assessment to obtain proper proper implant positioning and to correct deformity. Attention was then placed to the tibia. We made a tibial cut using the robot ensuring that both the MCL and the patella tendon were protected with retractors. We then went to the femur and made the posterior cut followed by the anterior cut and the anterior chamfer. The bone was then removed and we made a distal femur cut and a posterior chamfer cut. We verified all cuts. A trial reduction was performed with a size 4 femoral component and a size 5 keeled tibial component. The patella tracked centrally, and no lateral retinacular release was necessary. The trial implants were removed. The arrays, pins, and checkpoints were all removed. We performed a verification that all pins were removed. The cut bone surfaces were lavaged. A size 4 right femoral component, a size 5 keeled tibial component were impacted into position. The knee was felt to be well balanced in the sagittal and coronal plane. The final 5x10 mm cruciate- substituting articular insert was impacted into the tibial tray. The knee was brought out to full extension, flexed up to 120 degrees. It was stable to varus and valgus stress and appropriately balanced in flexion and extension. The wounds were copiously irrigated following deflation of tourniquet. The medial retinaculum was reapproximated with #1 vicryl and quill. The subcutaneous tissues were closed with 0 and 2-0 interrupted Vicryl. The skin was closed with 3-0 Monofilament V loc suture. A sterile dressing was applied. The patient was transferred to a bed and brought to recovery in stable condition. The patient tolerated the procedure well. There were no intraoperative complications. Sponge and needle counts were correct times 2. As the attending surgeon, Josie kuhn I was present and performed the entire operation. Grafts/Implants Size 4 CR Femur Size 5 Tibia 10mm poly CS Anesthesia spinal Implants angel Pathology / specimen None Pathology comment: none Estimated Blood Loss 150 Condition Stable Disposition same day Surgeon Malik Barakat MD Surgical Staff Operation Date: 09/05/24 07:30 Case Staff MULTIFOCAL BUTTON GRINDER: Chema Interiano RNbusiness development professional: Paulette Ni
--- NOTE | 2024-09-05 09:08 | XR_ITS ---
Examination: Right knee 2 views Technique one AP lateral right knee 2 views Date and time: September 06, 2019 5:10 AM INDICATIONS: Postop knee replacement today. FINDINGS: Total right knee arthroplasty. Satisfactory alignment. Prominent osteopenia. No fracture IMPRESSION: Total right knee has opacity was satisfactory alignment.
--- NOTE | 2024-09-05 09:44 | SUR.PHASEI ---
0925 Patient arrived to resting comfortably in [facility], on oxygen 8L via oxy mask, breathing unlabored, vital signs stable, denies pain, dressing intact to right knee; prineo, telfa, abd, webril, onel wraps, no bleeding noted, post spinal anesthesia assessment via ice; patient has dermatome sensation at L1-groin, will continue to monitor, bilateral dorsalis pedis pulses present when palpated, patient has good circulation to right lower extremity; skin color normal for patient and warm to touch, report received from Ralph MENA/Jack MENA and Rosario GERMAIN
--- NOTE | 2024-09-05 10:06 | SUR.PHASEII ---
1006 XRAY complete per MD order
--- NOTE | 2024-09-05 10:12 | SUR.PHASEII ---
1012 Notified anesthesia provider Ralph DIVINITY TEACHER patient is having pain, telephone order read-back received for Oxycodone IR 5mg oral tab for pain, will enter medication order into EMR and administer per anesthesia order
--- NOTE | 2024-09-05 10:22 | SUR.PHASEII ---
notified patient son patient out of surgery doing well, all questions answer
--- NOTE | 2024-09-05 10:25 | SUR.PHASEII ---
1025 patient ate a jello; tolerated well
[2024-09-05] MEDS: oxyCODONE HCL 5 MG IR TAB PO (10:28)
--- NOTE | 2024-09-05 11:20 | SUR.PHASEII ---
1120 patient ate half a sandwich and watermelon; drinking water; tolerating well, denies nausea
--- NOTE | 2024-09-05 11:51 | SUR.PHASEII ---
1153 Patient cleared by physical therapy to proceed with discharge
--- NOTE | 2024-09-05 12:00 | SUR.PHASEII ---
1200 patient had an episode of emesis 200ml, Ralph SALES OPERATIONS LEAD notified via telephone, telephone order read-back received from Zofran 4mg via IVP, will place order in EMR and administer per anesthesia order
[2024-09-05] MEDS: ONDANSETRON INJ 2 MG/ML INJ 2 ML 4 MG IVP (12:06)
--- NOTE | 2024-09-05 12:24 | SUR.PHASEII ---
1224 Patient meets discharge criteria from recovery, awake and alert, breathing unlabored, vital signs stable, denies pain, dressing intact; no bleeding noted, eating ice chips; denies nausea, patient voided in the restroom prior to discharge, assisted with dressing into her clothing by this health underwriter, discharge instructions given to patient and patients son, son signed discharge instructions. Patient given all her belongings prior to discharge, transported via wheelchair and left in a private vehicle.
== END 2024-09-05 12:24 | disposition home or self-care (01) ==
PROVIDERS: Anesthesiology; PCP Internal Medicine; Referring Provider Orthopaedic Surgery Adult Reconstructive Orthopaedic Surgery; Visit Provider Orthopaedic Surgery Adult Reconstructive Orthopaedic Surgery
PROC: (CPT 27447; principal; 2024-09-05 07:30)
DX: M17.11 Unilateral primary osteoarthritis, right knee (principal); M25.761 Osteophyte, right knee; Z01.810 Encounter for preprocedural cardiovascular examination; I10 Essential (primary) hypertension; E11.9 Type 2 diabetes mellitus without complications
CPT/HCPCS: 27447; 20985; 36415; 73560; 80053; 85025; 85610; 85730; 93005; 97162; A4217; C1713; C1776; J0131; J0690; J2405; J2704; J2795; J3490; J7999; A4648; A4649; A9270

== ENCOUNTER 2024-09-11 15:47 | Emergency (ER) | payer OTHER, MEDICAID, SELFPAY ==
[2024-09-11 15:48] VITALS: BMI 25.7
[2024-09-11 16:38] VITALS: BP 144/73; PULSE 81; RESP 18; TEMP 36.8; O2SAT 97
--- NOTE | 2024-09-11 16:40 | XR_ITS ---
Examination: Duplex scan of the lower extremity, unilateral right Date and time of exam: September 11, 2024, 1654 hours INDICATIONS: Right knee pain one week after knee replacement Technique: Duplex scan of the extremity veins using B-mode/grayscale imaging and Doppler spectral analysis and color flow Attention is directed to internal echogenicity, compression and augmentation involving these veins, color flow assessment, spectral analysis Findings: Positive for nonocclusive thrombus in the right peroneal vein The right popliteal vein is not optimally visualized There is a probable popliteal cyst noted IMPRESSION: Positive for nonocclusive thrombus in the right peroneal vein
--- NOTE | 2024-09-11 16:40 | PD.EDRME ---
Rapid Medical Screening Exam [facility] Arrival date/time: 09/11/24 15:47 This is a case of 78-year-old female who came in in the emergency room due to right knee pain and leg swelling history of present illness started last Thursday patient underwent knee surgery patient noted there is a discoloration on his right leg ecchymosis and swelling of the right leg thus decided to sought consult here in the emergency room Chief Complaint: Extremity Injury, Lower Vital signs: Vital Signs Temperature 98.3 F 09/11/24 16:38 Pulse Rate 81 09/11/24 16:38 Respiratory Rate 18 09/11/24 16:38 Blood Pressure 144/73 H 09/11/24 16:38 Pulse Oximetry (%) 97 09/11/24 16:38 Oxygen Delivery Method Room Air 09/11/24 16:38
[2024-09-11 18:08] VITALS: BP 152/78; PULSE 91; RESP 18; TEMP 37.1; O2SAT 97
[2024-09-11 18:09] LABS: Basophils # (Auto) 0.0 Thou/mm3 (0.0-0.2); Basophils % (Auto) 1 % (0-2.5); Eosinophils # (Auto) 0.1 Thou/mm3 (0.0-0.5); Eosinophils % (Auto) 1 % (0-10); Hematocrit 29.7 % (36.0-46.0); Hemoglobin 10.0 g/dL (12.0-16.0); Immature Granulocytes Auto 0.05 Thou/mm3 (0.00-0.00); Lymphocytes # (Auto) 1.8 Thou/mm3 (1.0-4.8); Lymphocytes % (Auto) 20 % (10-50); Mean Corpuscular HGB Conc 33.7 g/dl (31.0-37.0); Mean Corpuscular Hemoglobin 28.7 pg (25.0-35.0); Mean Corpuscular Volume 85 fL (80-100); Monocytes # (Auto) 0.7 Thou/mm3 (0.0-0.8); Monocytes % (Auto) 8 % (0-12); Neutrophils # (Auto) 6.2 Thou/mm3 (1.8-7.7); Neutrophils % (Auto) 70 % (37-80); Nucleated Red Blood Cell # 0.00 Thou/mm3 (0.00-0.00); Nucleated Red Blood Cell % 0 /100 WBC (0); Platelet Count 347 Thou/mm3 (140-440); RDW Standard Deviation 42.1 fL (36.4-46.3); Red Blood Count 3.48 Miln/mm3 (4.00-5.20); White Blood Count 8.8 Thou/mm3 (3.6-11.0)
[2024-09-11 18:12] VITALS: BP 144/67; PULSE 72; RESP 16; TEMP 36.8; O2SAT 98
--- NOTE | 2024-09-11 18:21 | PD.EDEXREM ---
ED Extremity Problem RME/HPI General Chief complaint: Extremity Injury, Lower Stated complaint: R KNEE SWELLING S/P R TOTAL KNEE REPLACEMENT Arrival date/time: 09/11/24 15:47 RME / HPI RME / HPI Narrative: 09/11/24 15:47 This is a case of 78-year-old female who came in in the emergency room due to right knee pain and leg swelling history of present illness started last Thursday patient underwent knee surgery patient noted there is a discoloration on his right leg ecchymosis and swelling of the right leg thus decided to sought consult here in the emergency room DR. MONTANZE MAIN ED EVALUATION: 78 y/o female with Hx of Osteoporosis and recent SHx of complete arthroplasty of the right knee presents to ED RLE swelling below the knee and purple discoloration to the LLE x 3 days. Patient underwent surgery on 09/05/2024. Denies any fever. No other concerns or complaints expressed at this time. No chest pain or shortness of breath Related Data Home Medications ?Medication ?Instructions ?Recorded ?Confirmed gabapentin 100 mg capsule 100 mg PO HS PRN pain 01/01/24 09/05/24 baclofen 10 mg tablet 10 mg PO HS PRN muscle spasm 09/01/24 09/05/24 calcitonin (salmon) 200 1 spray intranasal DAILY 09/01/24 09/05/24 unit/actuation nasal spray glipizide 5 mg tablet 5 mg PO QDAY 09/01/24 09/05/24 levothyroxine 125 mcg tablet 125 mcg PO DAILY 09/01/24 09/05/24 lisinopril 10 mg tablet 10 mg PO DAILY 09/01/24 09/05/24 ropinirole 0.5 mg tablet 0.5 mg PO HS PRN restless leg(s) 09/01/24 09/05/24 Previous Rx's ?Medication ?Instructions ?Recorded acetaminophen 500 mg tablet 1,000 mg (2 x 500 mg) PO Q6H PRN 09/05/24 (Acetaminophen Extra Strength) pain #90 tabs aspirin 81 mg tablet,delayed 81 mg PO BID #60 tabs 09/05/24 release doxycycline hyclate 100 mg tablet 100 mg PO BID #14 tabs 09/05/24 gabapentin 300 mg capsule 300 mg PO .qhs #30 caps 09/05/24 oxycodone 5 mg tablet 5 mg PO Q6H PRN pain #28 tabs 09/05/24 sennosides 8.6 mg-docusate sodium 1 tab-cap PO QDAY #30 tabs 09/05/24 50 mg tablet (Senna-S) apixaban 5 mg tablet (Eliquis) 5 mg PO BID #60 tabs 09/11/24 Allergies Allergy/AdvReac Type Severity Reaction Status Date / Time PCN Allergy Mild Rash Uncoded 09/11/24 15:53 Review of Systems Review of Systems Systems Reviewed: All systems reviewed, normal except as documented Past Medical History Past Medical History CARDIAC: Positive Cardiac Disorders, Hypercholesterolemia, Hypertension and Varicose Veins GENITOURINARY: Positive Genitourinary Disorders (Chronic UTI) and Kidney Stones REPRODUCTIVE: Positive Previous Pregnancies MUSCULOSKELETAL: Positive Musculoskeletal Disorders, Arthritis, Osteoporosis, Gout and Fractures (Left arm) ENDOCRINE: Positive Endocrine Disorders and Diabetes Mellitus Type 2 OTHER HISTORY: Positive Chicken Pox and Measles Family History FAMILY HISTORY: Positive Family Cancer ED Exam Narrative Physical exam: Generally patient is alert in no obvious distress. Not dyspneic or tachypneic. Heart is regular rate and rhythm lungs serial station equal bilaterally abdomen soft bowel sounds present and nontender extremity shows surgical scar over the anterior aspect of the right knee with some swelling around bilateral sides of the right knee and distal to the right knee. Patient has a strong dorsalis pedis pulse to the right lower extremity. Slight contusion around the right knee most likely secondary to the surgery. Course Quality Measures none Orders Category Date Time Status US venous doppler LE RT Stat Exams 09/11/24 16:40 Completed CBC Stat Lab 09/11/24 17:35 Completed CMP [Comprehensive Metabolic Panel] Stat Lab 09/11/24 17:35 Completed Apixaban [Eliquis] Med 09/11/24 18:15 Discontinued 10 mg PO X1 ONE Vital Signs Vital signs: Vital Signs Temperature 98.3 F 09/11/24 16:38 Pulse Rate 81 09/11/24 16:38 Respiratory Rate 18 09/11/24 16:38 Blood Pressure 144/73 H 09/11/24 16:38 Pulse Oximetry (%) 97 09/11/24 16:38 Oxygen Delivery Method Room Air 09/11/24 16:38 Extremity Problem MDM Narrative MDM Narrative:: Scribe Attestation: I, Jodie Bae, am scribing for and in the presence of Dr. Montanez. Provider Notation: Although this document has been carefully reviewed, there may still be some phonetic and other typographical errors.? These errors are purely grammatical due to imperfections in the software program and should not be construed in any way to? compromise the substance of the patient's medical care during this visit. I interpreted all labs. Doppler ultrasound to the right lower extremity showed evidence for a peroneal vein DVT that was nonocclusive. Patient was given a dose of Eliquis 10 mg p.o. here in the emergency room. She will be started on 5 mg twice a day of Eliquis to be taken at home. Follow-up with her orthopedic and primary care physician. Return to ER as needed or if condition worsens. Patient data External records reviewed:: [facility] previous records (No prior ED records available for review.) Clinical information provided by:: patient and family (Son) Social determinants that could affect healthcare access:: none Patient has the following chronic illnesses:: Hypercholesterolemia, Hypertension, Varicose Veins, UTI, Kidney Stones, Arthritis, Osteoporosis, Gout, Diabetes Mellitus Type 2 How is presenting disease/condition affected by chronic disease/condition?: exacerbated by Evaluation data The following diagnostics were reviewed and interpreted by me:: lab results and radiology exam(s) Lab and/or radiology exams considered but not ordered:: None Interpretation Summary: RADIOLOGY Venous Doppler: Findings: Positive for nonocclusive thrombus in the right peroneal vein The right popliteal vein is not optimally visualized There is a probable popliteal cyst noted IMPRESSION: Positive for nonocclusive thrombus in the right peroneal vein Medications / Prescriptions Medications or Prescriptions considered but not ordered:: None Medication administrations:: Medication Administration History Discontinued Medications Apixaban (Apixaban 2.5 Mg Tablet) 10 mg PO X1 ONE Stop: 09/11/24 18:16 See above Consultations Consultation(s) initiated? (list below): No Diagnosis Extremity Problem Differential Diagnosis: gout, cellulitis, superficial thrombophlebitis, lower extremity edema and deep vein thrombosis of lower extremity Most likely diagnosis given after review of the tests above:: DVT Admission Indicated Admission indicated?: not indicated Explain why admission is indicated or not indicated:: Patient does not meet admission criteria. Admission Request Was there a request for admission?: No Disposition Plan Disposition Plan: Discharge Discharge Attestation Discharge Attestation: The patient and all family members were given an opportunity to ask questions and understood the discharge instructions. Discharge instructions specifically effects, indications for sooner follow up or return to the emergency department, and the expected course of current diagnosis. Patient condition: Stable Discharge Plan Plan Patient Disposition: HOME (Self Care) Prescriptions/Referrals Prescriptions/Med Rec: New Eliquis 5 mg tablet 5 mg PO BID Qty: 60 0RF No Action gabapentin 100 mg capsule 100 mg PO HS PRN (Reason: pain) glipizide 5 mg tablet 5 mg PO QDAY baclofen 10 mg tablet 10 mg PO HS PRN (Reason: muscle spasm) ropinirole 0.5 mg tablet 0.5 mg PO HS PRN (Reason: restless leg(s)) levothyroxine 125 mcg tablet 125 mcg PO DAILY Patient Comments: TAKE 1 TABLET BY MOUTH DAILY calcitonin (salmon) 200 unit/actuation spray,non-aerosol 1 spray intranasal DAILY Patient Comments: INSTILL 1 SPRAY INTO ONE NOSTRIL ONCE A DAY. ALTERNATING NOSTRILS lisinopril 10 mg tablet 10 mg PO DAILY Patient Comments: TAKE 1 TABLET BY MOUTH DAILY sennosides-docusate sodium [Senna-S] 8.6-50 mg tablet 1 tab-cap PO QDAY Qty: 30 0RF aspirin 81 mg tablet,delayed release (DR/EC) 81 mg PO BID Qty: 60 0RF acetaminophen [Acetaminophen Extra Strength] 500 mg tablet 1,000 mg PO Q6H MDD 1000mg PRN (Reason: pain) Qty: 90 0RF gabapentin 300 mg capsule 300 mg PO .qhs Qty: 30 0RF doxycycline hyclate 100 mg tablet 100 mg PO BID Qty: 14 0RF oxycodone 5 mg tablet 5 mg PO Q6H MDD 20 PRN (Reason: pain) Qty: 28 0RF Rx Instructions: z96.65 Referrals: No Primary/Family,Physician [Primary Care Provider] - In 1 week Problem List Clinical Impression: DVT (deep venous thrombosis) Patient/Caregiver Discharge Instructions Additional Instructions: Take the Eliquis as prescribed. Continue all other current medications. Continue your rehabilitation. Follow-up with your doctor or an orthopedic surgeon. Return to ER as needed or if condition worsens such as severe chest pain or shortness of breath. Print Language: Vietnamese Stand Alone Forms: [employer] Award Info., Patient Portal Info Letter
[2024-09-11 18:25] LABS: Alanine Aminotransferase 9 U/L (10-49); Albumin, Serum 4.1 gm/dL (3.4-4.8); Albumin/Globulin Ratio 1.6 (1.2-2.2); Alkaline Phosphatase 102 U/L (46-116); Anion Gap 10 (7-16); Aspartate Amino Transferase 20 U/L (0-34); BUN/Creatinine Ratio 12 Ratio (12-20); Bilirubin,Total 0.7 mg/dL (0.3-1.2); Blood Urea Nitrogen 6 mg/dL (9-23); Calcium 9.8 mg/dL (8.3-10.6); Calcium (Corrected) 9.8 mg/dL (8.5-10.1); Carbon Dioxide 26.3 mMol/L (20.0-31.0); Chloride 96 mMol/L (98-107); Creatinine (Component) 0.5 mg/dL (0.6-1.3); Estimated Creatinine Clearance 80.1 mL/min (>60); Globulin 2.6 gm/dL (2.3-3.5); Glucose 145 mg/dL (74-106); Osmolality,Calculated 265 (275-295); Potassium 4.5 mMol/L (3.4-5.1); Sodium 132 mMol/L (136-145); Total Protein 6.7 gm/dL (5.7-8.2); eGFR > 60 See Note
[2024-09-11] MEDS: APIXABAN 2.5 MG TABLET 10 MG PO (18:44)
== END 2024-09-11 18:55 | disposition home or self-care (01) ==
PROVIDERS: Nurse Practitioner Family; Emergency Provider Emergency Medicine
DX: I82.451 Acute embolism and thrombosis of right peroneal vein (principal)
CPT/HCPCS: 36415; 80053; 85025; 93971; 99283; A9270

== ENCOUNTER 2024-09-20 10:12 | Outpatient (AMB) | payer OTHER, MEDICAID, SELFPAY ==
[2024-09-20 11:00] VITALS: BP 132/69; PULSE 65; RESP 18; TEMP 36.4; O2SAT 92; BMI 26.9
--- NOTE | 2024-09-20 11:00 | PD.ORTHCLVIS ---
Vital signs 09/20/24 11:00 Height 1.57 m Height Method Stated Weight 66.395 kg Weight Measurement Method Standing Scale BMI 26.9 BP 132/69 H Blood Pressure Source Automatic Cuff Blood Pressure Location Left Upper Arm Position Sitting Respiration 18 Pulse 65 Pulse Source Monitor Temp 97.5 F Temp Source Temporal Artery Scan Pulse Oximetry (%) 92 L Oxygen Delivery Method Room Air Med/Allergies Allergies & Medications Allergies PCN Allergy (Mild, Uncoded 09/11/24 15:53) Rash Exam Exam Patient is in no acute distress and is cooperative with the examination today. Breathing is nonlabored. In no respiratory distress. Bilateral extremities were evaluated and demonstrates sensation intact to light touch. Palpable pedal pulses are present. No significant edema is present. Bilateral hips were examined. The patient has no pain with log roll of the hips. Internal rotation to 30 degrees and external rotation to 30 degrees is painless. Negative FADIR. INCISION IS C/D/I Assessment and Plan Problem List (1) Degenerative arthritis of knee, bilateral: Status: Acute Plan: Patient is a pleasant 78-year-old female with bilateral knee arthritis worse on the left. She is s/p L TKA and is doing well/ - continue eliquis - pain control - start outpatient pt Advanced Care Planning Discussion Advance care planning discussed with:: patient Office Procedures GNS Level of Care Nursing/Assessment Patient Status: Established Patient Nursing Assessment/Reassesment: Medication Reconciliation, Update PMH in EMR and Vital Signs Coordination of Care: Complex Care and Chronic Disease 1-5, Education Complex Pt/Fam, Consent,records obtained, informed consent, Results/Orders obtained and Staff clarify orders Established Patient Charge Established Patient Point Assignment: 95 Established Patient Point Charge: EP Level 3 (80-115) MA Intake Visit Data Collection New Patient or Established: Established Patient (seen at [facility] within 3 years) Seen by Clinical Staff ONLY (RN/MA): No PCP or OBGYN visit in last 3 months: Yes Hx Now: No Do You Feel Safe at Home: Yes Authorities Contacted: N/A Questionairres Past Medical History Past Medical History Have you ever been diagnosed with any of the following: Neurological Problems Seizures: No Cardiology Problems Hypercholesterolemia: Yes Congestive Heart Failure: No Hypertension: Yes Varicose Veins: Yes Respiratory Problems Chronic Obstructive Pulmonary Disease (COPD): No Smoking: No Smoking Exposure: No Stomache/Intestinal Problems Hepatitis: No Genital/Urinary Problems Renal Disease: No Kidney Stones: Yes Dialysis: No Reproductive Problems Previous Pregnancies: Yes Musculoskeletal Problems Arthritis: Yes Rheumatoid Arthritis: Yes Osteoporosis: Yes Gout: Yes Fractures: Yes (Left arm) Endocrine Problems Diabetes Mellitus Type 1: No Diabetes Mellitus Type 2: Yes Other Problems Blood Transfusions: No Blood Transfusion Reaction: No Anesthesia Reactions: No Chicken Pox: Yes Measles: Yes Cancer: No Subjective Visit Visit for: follow up visit, knee and injections Immunization / Flu Flu Vaccine in the Last 12 Months: No Flu Vaccine Exclusion Criteria: No Exclusion Criteria History of Present Illness Chief complaint: RIGHT WORSE THAN LEFT Flora is a pleasant 78-year-old female with bilateral knee pain and bilateral knee arthritis. This has been ongoing for several years. she is status post right total knee replacement and is doing well. She was diagnosed with a blood clot in the emergency room and they put her on Eliquis. She is doing well now. There is minimal swelling in the knee We will see her in 4 weeks for routine follow-up Pain Pain level (0-10): 8 Pain duration: ALL DAY Pain location: inside (medial) and anterior Pain quality: aching Pain timing: increases with activity Associated signs & symptoms: none Ambulatory data Ambulatory device: walker Treatments Improvement with previous injections: No Improvement with PT: No Improvement with NSAIDS: no Review of Systems Review of Systems: All systems negative unless otherwise noted in HPI.
== END 2024-09-20 11:12 | disposition home or self-care (01) ==
LOC: HODSRG 10:12
PROVIDERS: PCP Internal Medicine; Referring Provider Internal Medicine; Supervising Provider Orthopaedic Surgery Adult Reconstructive Orthopaedic Surgery; Visit Provider Orthopaedic Surgery Adult Reconstructive Orthopaedic Surgery
DX: M17.0 Bilateral primary osteoarthritis of knee (principal); Z96.652 Presence of left artificial knee joint; I10 Essential (primary) hypertension; E78.00 Pure hypercholesterolemia, unspecified; E11.9 Type 2 diabetes mellitus without complications
CPT/HCPCS: 99213; G0463

== ENCOUNTER → 2024-10-07 | Outpatient (CLI) | payer OTHER, MEDICAID, SELFPAY ==
[2024-10-07 14:34] LABS: Collection Type, Urine Clean Catch
[2024-10-07 14:53] LABS: Basophils # (Auto) 0.0 Thou/mm3 (0.0-0.2); Basophils % (Auto) 1 % (0-2.5); Eosinophils # (Auto) 0.0 Thou/mm3 (0.0-0.5); Eosinophils % (Auto) 1 % (0-10); Hematocrit 33.8 % (36.0-46.0); Hemoglobin 11.3 g/dL (12.0-16.0); Immature Granulocytes Auto 0.04 Thou/mm3 (0.00-0.00); Lymphocytes # (Auto) 1.5 Thou/mm3 (1.0-4.8); Lymphocytes % (Auto) 25 % (10-50); Mean Corpuscular HGB Conc 33.4 g/dl (31.0-37.0); Mean Corpuscular Hemoglobin 28.3 pg (25.0-35.0); Mean Corpuscular Volume 85 fL (80-100); Monocytes # (Auto) 0.4 Thou/mm3 (0.0-0.8); Monocytes % (Auto) 7 % (0-12); Neutrophils # (Auto) 4.0 Thou/mm3 (1.8-7.7); Neutrophils % (Auto) 66 % (37-80); Nucleated Red Blood Cell # 0.00 Thou/mm3 (0.00-0.00); Nucleated Red Blood Cell % 0 /100 WBC (0); Platelet Count 323 Thou/mm3 (140-440); RDW Standard Deviation 43.2 fL (36.4-46.3); Red Blood Count 3.99 Miln/mm3 (4.00-5.20); White Blood Count 6.0 Thou/mm3 (3.6-11.0)
[2024-10-07 15:04] LABS: Glucose Estimated Average 131 mg/dL (80-131); Hemoglobin A1C 6.2 % Hgb (4.8-6.0)
[2024-10-07 15:06] LABS: INR 1.2 (0.9-1.3); Partial Thromboplastin Time 34.7 Seconds (22.0-36.0); Prothrombin Time 12.6 Seconds (9.0-12.2)
[2024-10-07 15:10] LABS: Creatinine MALB Rnd Ur 107 mg/dL (30-125); Microalbumin Creat Ratio 18 mg/gCrea (<30); Microalbumin, Random Urine 19 mg/L (0-300)
[2024-10-07 15:32] LABS: Alanine Aminotransferase < 7 U/L (10-49); Albumin, Serum 4.1 gm/dL (3.4-4.8); Albumin/Globulin Ratio 1.5 (1.2-2.2); Alkaline Phosphatase 91 U/L (46-116); Anion Gap 10 (7-16); Aspartate Amino Transferase 14 U/L (0-34); BUN/Creatinine Ratio 14 Ratio (12-20); Bilirubin,Total 0.5 mg/dL (0.3-1.2); Blood Urea Nitrogen 7 mg/dL (9-23); Calcium 9.5 mg/dL (8.3-10.6); Calcium (Corrected) 9.5 mg/dL (8.5-10.1); Carbon Dioxide 27.1 mMol/L (20.0-31.0); Chloride 99 mMol/L (98-107); Creatinine (Component) 0.5 mg/dL (0.6-1.3); Globulin 2.7 gm/dL (2.3-3.5); Glucose 101 mg/dL (74-106); Osmolality,Calculated 269 (275-295); Potassium 4.6 mMol/L (3.4-5.1); Sodium 136 mMol/L (136-145); Thyroid Stimulating Hormone 0.90 uIU/mL (0.55-4.78); Total Protein 6.8 gm/dL (5.7-8.2); eGFR > 60 See Note
[2024-10-07 15:44] LABS: Cardiac Risk Estimate 3.4 RATIO (3.7-5.6); Cholesterol 160 mg/dL (132-200); HDL Cholesterol 47 mg/dL (40-60); LDL Cholesterol,Calculated 81 mg/dL (0-130); Triglycerides 161 mg/dL (30-150)
[2024-10-07 15:54] LABS: Bilirubin,Urine Negative (Negative); Blood,Urine Negative (Negative); Clarity,Urine Clear (Clear/Hazy); Color,Urine Yellow (Lt Yel-Yel); Glucose, Urine Negative (Negative); Ketones,Urine Negative (Negative); Leukocyte Esterase,Urine Positive (Negative); Nitrite,Urine Negative (Negative); PH,Urine 7.5 (5.0-7.0); Protein,Urine Trace (Neg - Trace); RBC,Urine 3 /hpf (0-3); Specific Gravity,Urine 1.018 (1.001-1.035); Squamous Epithelial Cell,Urine 2 /hpf (0-5); Urobilinogen,Urine Negative mg/dL (0.0-1.0); WBC,Urine 15 /hpf (0-5)
[2024-10-07 16:03] LABS: Culture Indicated,Urine Yes
== END | disposition home or self-care (01) ==
LOC: COPL 14:05
PROVIDERS: PCP Internal Medicine; Referring Provider Internal Medicine; Visit Provider Internal Medicine
DX: Z00.00 Encounter for general adult medical examination without abnormal findings (principal); E11.42 Type 2 diabetes mellitus with diabetic polyneuropathy; I10 Essential (primary) hypertension; E78.5 Hyperlipidemia, unspecified
CPT/HCPCS: 36415; 80053; 80061; 81001; 82043; 82570; 83036; 84443; 85025; 85610; 85730; 87086

== ENCOUNTER 2024-10-18 10:41 | Outpatient (AMB) | payer OTHER, MEDICAID, SELFPAY ==
--- NOTE | 2024-10-18 10:49 | PD.ORTHCLVIS ---
Vital signs 10/18/24 10:50 Height 1.57 m Height Method Measured Weight 65.516 kg Weight Measurement Method Standing Scale BMI 26.6 BP 132/69 H Blood Pressure Source Automatic Cuff Blood Pressure Location Left Upper Arm Position Sitting Respiration 18 Pulse 81 Pulse Source Monitor Temp 97.1 F Temp Source Temporal Artery Scan Pulse Oximetry (%) 97 Oxygen Delivery Method Room Air Med/Allergies Allergies & Medications Allergies PCN Allergy (Mild, Uncoded 10/18/24 10:51) Rash Medication Reconciliation gabapentin 100 mg capsule 100 mg PO HS PRN pain 01/01/24 [History Confirmed 10/18/24] baclofen 10 mg tablet 10 mg PO HS PRN muscle spasm 09/01/24 [History Confirmed 10/18/24] calcitonin (salmon) 200 unit/actuation nasal spray 1 spray intranasal DAILY 09/01/24 [History Confirmed 10/18/24] glipizide 5 mg tablet 5 mg PO QDAY 09/01/24 [History Confirmed 10/18/24] levothyroxine 125 mcg tablet 125 mcg PO DAILY 09/01/24 [History Confirmed 10/18/24] lisinopril 10 mg tablet 10 mg PO DAILY 09/01/24 [History Confirmed 10/18/24] ropinirole 0.5 mg tablet 0.5 mg PO HS PRN restless leg(s) 09/01/24 [History Confirmed 10/18/24] aspirin 81 mg tablet,delayed release 81 mg PO BID #60 tabs 09/05/24 [Rx Confirmed 10/18/24] doxycycline hyclate 100 mg tablet 100 mg PO BID #14 tabs 09/05/24 [Rx Confirmed 10/18/24] oxycodone 5 mg tablet 5 mg PO Q6H PRN pain #28 tabs 09/05/24 [Rx Confirmed 10/18/24] sennosides 8.6 mg-docusate sodium 50 mg tablet (Senna-S) 1 tab-cap PO QDAY #30 tabs 09/05/24 [Rx Confirmed 10/18/24] apixaban 5 mg tablet (Eliquis) 5 mg PO BID #60 tabs 09/11/24 [Rx Confirmed 10/18/24] acetaminophen 500 mg tablet (Acetaminophen Extra Strength) 1,000 mg (2 x 500 mg) PO Q6H PRN pain #90 tabs 09/20/24 [Rx Confirmed 10/18/24] oxycodone 5 mg tablet 5 mg PO Q6H PRN pain #28 tabs 10/03/24 [Rx Confirmed 10/18/24] gabapentin 300 mg capsule 300 mg PO .qhs #30 caps 10/18/24 [Rx] Exam Exam Patient is in no acute distress and is cooperative with the examination today. Breathing is nonlabored. In no respiratory distress. Bilateral extremities were evaluated and demonstrates sensation intact to light touch. Palpable pedal pulses are present. No significant edema is present. Bilateral hips were examined. The patient has no pain with log roll of the hips. Internal rotation to 30 degrees and external rotation to 30 degrees is painless. Negative FADIR. INCISION IS C/D/I Assessment and Plan Problem List (1) Degenerative arthritis of knee, bilateral: Status: Acute Plan: Patient is a pleasant 78-year-old female with bilateral knee arthritis worse on the left. She is s/p R TKA and is doing well/ She would like a contralateral knee injection today Recommend knee cortisone injection as patient would like to proceed with conservative treatment at this time. The risks and benefits of the procedure were reviewed with the patient and patient gave verbal consent to continue with the procedure. Procedure: performed by Dr. Barakat Using sterile technique the left knee was thoroughly prepped with alcohol, and approximately 1 cc of Depo-Medrol 80mg/mL and 4 cc of 0.2% ropivacaine was injected without resistance into the medial tibial femoral joint space. The patient tolerated the procedure. Advanced Care Planning Discussion Advance care planning discussed with:: patient Office Procedures GNS Level of Care Nursing/Assessment Patient Status: Established Patient Nursing Assessment/Reassesment: Medication Reconciliation, Orthostatic Vitals and Vital Signs Coordination of Care: Complex Care and Chronic Disease 1-5, Education Complex Pt/Fam, Consent,records obtained, informed consent, Results/Orders obtained and Staff clarify orders Established Patient Charge Established Patient Point Assignment: 95 Established Patient Point Charge: EP Level 3 (80-115) Surgical Proc/IM SQ injection Major Surgical Procedure: Yes (KNEE INJECTION ) Medication Given Medication Given Medication Given: Yes Documented Dose Given: 1 Route: Infiitration Medication Given Medication Given Medication Given: Yes Documented Dose Given: 4 Route: Infiitration Office Meds methylprednisolone acetate 80 mg/mL suspension for injection Performing Provider: Malik Barakat MD Performing Location: [facility] Administered by: Malik Barakat MD on 10/18/24 11:03 Dose Route Admin Location Dispensed Lot Number Expiration Date [facility] [employer]ou[employer] 80 mg intra-articular KNEE 1 mL [id number] 07/16/26 [address]-2 [employer] ropivacaine (PF) 2 mg/mL (0.2 %) injection solution Performing Provider: Malik Barakat MD Performing Location: [facility] Administered by: Malik Barakat MD on 10/18/24 11:03 Dose Route Admin Location Dispensed Lot Number Expiration Date 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 PCP or OBGYN visit in last 3 months: Yes Hx Now: No Do You Feel Safe at Home: Yes Authorities Contacted: N/A Questionairres Past Medical History Past Medical History Have you ever been diagnosed with any of the following: Neurological Problems Seizures: No Cardiology Problems Hypercholesterolemia: Yes Congestive Heart Failure: No Hypertension: Yes Varicose Veins: Yes Respiratory Problems Chronic Obstructive Pulmonary Disease (COPD): No Smoking: No Smoking Exposure: No Stomache/Intestinal Problems Hepatitis: No Genital/Urinary Problems Renal Disease: No Kidney Stones: Yes Dialysis: No Reproductive Problems Previous Pregnancies: Yes Musculoskeletal Problems Arthritis: Yes Rheumatoid Arthritis: Yes Osteoporosis: Yes Gout: Yes Fractures: Yes (Left arm) Endocrine Problems Diabetes Mellitus Type 1: No Diabetes Mellitus Type 2: Yes Other Problems Blood Transfusions: No Blood Transfusion Reaction: No Anesthesia Reactions: No Chicken Pox: Yes Measles: Yes Cancer: No Subjective Visit Visit for: follow up visit and knee Immunization / Flu Flu Vaccine in the Last 12 Months: No Flu Vaccine Exclusion Criteria: No Exclusion Criteria History of Present Illness Chief complaint: 4 WEEK F/U Flora is a pleasant 78-year-old female with bilateral knee pain and bilateral knee arthritis. She is status post right total knee replacement and is doing well Pain Pain level (0-10): 8 Pain duration: ALL DAY Pain location: inside (medial) and anterior Pain quality: aching Pain timing: increases with activity Associated signs & symptoms: none Ambulatory data Ambulatory device: walker Treatments Improvement with previous injections: No Improvement with PT: No Improvement with NSAIDS: no Review of Systems Review of Systems: All systems negative unless otherwise noted in HPI.
[2024-10-18 10:50] VITALS: BP 132/69; PULSE 81; RESP 18; TEMP 36.2; O2SAT 97; BMI 26.6
--- NOTE | 2024-10-18 11:00 | XR_ITS ---
Examination: Bilateral knees 2 views Right lateral knee left lateral knee 2 views Bilateral axial knees single view TECHNIQUE: Bilateral AP knees standing single view, bilateral PA knees standing single view flexion Standing right lateral knee left lateral knee 2 views Bilateral axial knees single view total 5 views Date and time: October 18, 2024 1106 hours INDICATIONS: Postop right knee replacement 6 weeks ago, bilateral knee pain months. FINDINGS: Moderate osteopenia Total right knee arthroplasty. Satisfactory alignment. No loosening of the prosthetic components. Advanced left knee tricompartment osteoarthritis including severe narrowing [id number] medial joint space IMPRESSION: Advanced left knee tricompartment osteoarthritis, including severe narrowing, [id number], medial joint space left knee
== END 2024-10-18 11:03 | disposition home or self-care (01) ==
LOC: HODSRG 10:41
PROVIDERS: PCP Internal Medicine; Referring Provider Internal Medicine; Supervising Provider Orthopaedic Surgery Adult Reconstructive Orthopaedic Surgery; Visit Provider Orthopaedic Surgery Adult Reconstructive Orthopaedic Surgery
DX: M17.0 Bilateral primary osteoarthritis of knee (principal); M25.562 Pain in left knee; M25.561 Pain in right knee; Z96.651 Presence of right artificial knee joint; I10 Essential (primary) hypertension; E11.9 Type 2 diabetes mellitus without complications
CPT/HCPCS: 20610; 73564; 99213; J1010; J2795; G0463

== ENCOUNTER 2025-01-17 10:12 | Outpatient (AMB) | payer OTHER, MEDICAID, SELFPAY ==
[2025-01-17 10:33] VITALS: BP 131/73; PULSE 66; RESP 16; TEMP 35.8; O2SAT 97; BMI 27.3
--- NOTE | 2025-01-17 10:33 | PD.ORTHCLVIS ---
Vital signs 01/17/25 10:33 Height 1.57 m Height Method Stated Weight 67.302 kg Weight Measurement Method Standing Scale BMI 27.3 BP 131/73 H Blood Pressure Source Automatic Cuff Blood Pressure Location Left Upper Arm Position Sitting Respiration 16 Pulse 66 Pulse Source Monitor Temp 96.5 F L Temp Source Temporal Artery Scan Pulse Oximetry (%) 97 Oxygen Delivery Method Room Air Med/Allergies Allergies & Medications Allergies PCN Allergy (Mild, Uncoded 01/17/25 10:34) Rash Medication Reconciliation gabapentin 100 mg capsule 100 mg PO HS PRN pain 01/01/24 [History Confirmed 01/17/25] baclofen 10 mg tablet 10 mg PO HS PRN muscle spasm 09/01/24 [History Confirmed 01/17/25] calcitonin (salmon) 200 unit/actuation nasal spray 1 spray intranasal DAILY 09/01/24 [History Confirmed 01/17/25] glipizide 5 mg tablet 5 mg PO QDAY 09/01/24 [History Confirmed 01/17/25] levothyroxine 125 mcg tablet 125 mcg PO DAILY 09/01/24 [History Confirmed 01/17/25] lisinopril 10 mg tablet 10 mg PO DAILY 09/01/24 [History Confirmed 01/17/25] ropinirole 0.5 mg tablet 0.5 mg PO HS PRN restless leg(s) 09/01/24 [History Confirmed 01/17/25] aspirin 81 mg tablet,delayed release 81 mg PO BID #60 tabs 09/05/24 [Rx Confirmed 01/17/25] doxycycline hyclate 100 mg tablet 100 mg PO BID #14 tabs 09/05/24 [Rx Confirmed 01/17/25] oxycodone 5 mg tablet 5 mg PO Q6H PRN pain #28 tabs 09/05/24 [Rx Confirmed 01/17/25] sennosides 8.6 mg-docusate sodium 50 mg tablet (Senna-S) 1 tab-cap PO QDAY #30 tabs 09/05/24 [Rx Confirmed 01/17/25] apixaban 5 mg tablet (Eliquis) 5 mg PO BID #60 tabs 09/11/24 [Rx Confirmed 01/17/25] acetaminophen 500 mg tablet (Acetaminophen Extra Strength) 1,000 mg (2 x 500 mg) PO Q6H PRN pain #90 tabs 09/20/24 [Rx Confirmed 01/17/25] oxycodone 5 mg tablet 5 mg PO Q6H PRN pain #28 tabs 10/03/24 [Rx Confirmed 01/17/25] gabapentin 300 mg capsule 300 mg PO .qhs #30 caps 10/18/24 [Rx Confirmed 01/17/25] diclofenac sodium 1 % topical gel 4 g topical QID #100 grams 01/17/25 [Rx] meloxicam 7.5 mg tablet 7.5 mg PO QDAY #45 tabs 01/17/25 [Rx] Exam Exam Patient is in no acute distress and is cooperative with the examination today. Breathing is nonlabored. In no respiratory distress. Bilateral extremities were evaluated and demonstrates sensation intact to light touch. Palpable pedal pulses are present. No significant edema is present. Bilateral hips were examined. The patient has no pain with log roll of the hips. Internal rotation to 30 degrees and external rotation to 30 degrees is painless. Negative FADIR. INCISION IS C/D/I. Range of motion is 0 to 100 degrees Assessment and Plan Problem List (1) Degenerative arthritis of knee, bilateral: Status: Acute Plan: Patient is a pleasant 78-year-old female with bilateral knee arthritis worse on the left. She is s/p R TKA and is doing well/ She would like a contralateral knee injection today Recommend knee cortisone injection as patient would like to proceed with conservative treatment at this time. The risks and benefits of the procedure were reviewed with the patient and patient gave verbal consent to continue with the procedure. Procedure: performed by Dr. Barakat Using sterile technique the left knee was thoroughly prepped with alcohol, and approximately 1 cc of Depo-Medrol 80mg/mL and 4 cc of 0.2% ropivacaine was injected without resistance into the medial tibial femoral joint space. The patient tolerated the procedure. Her son who is her primary care provider is a teacher and would like to get her left knee replaced in the summer. She is felt conservative treatment clued multiple injections and anti-inflammatories. We thus discussed total knee replacement as a reasonable option for the left side. The nature and purpose of the total knee replacement, alternative method(s) of treatment, the material risks involved, and the possibility of complications were fully explained to the patient. The patient does NOT have any of the following contraindications to TKA: - Active infection of the knee joint, OR - Active systemic bacteremia, OR - Active skin infection or open wound at surgical site, OR - Neuropathic arthritis, OR - Severe, rapidly progressive neurological disease, OR - Severe medical condition that makes risks of surgery outweigh the potential benefit The patient was told the most common risks and complications associated with a total knee replacement include, but are not limited to: blood clots in the leg, fatal pulmonary embolism, dislocation of the prosthesis, intraoperative and postoperative fractures of the femur or tibia, infection, failure of the prosthesis or grafting materials, complications from anesthesia, reactions to blood transfusions, postoperative leg length inequality, instability of the knee replacement, nerve damage or injury, vascular injury, delayed wound healing, infection, other injury or even . In addition, there are risks associated with anesthesia given during this operation. Also, the patient was told that after undergoing a total knee replacement there may still be persistent pain or disability. The patient was informed that the success of this operation in part depends upon the mechanical devices which are going to be implanted and that these devices can fail or malfunction, and may need to be repaired or replaced and there are no guarantees as to the longevity of this device or its parts and that it or its parts could fail prematurely. The patient was also notified that during the course of surgery, there may be a need to use bone graft from donors, and that any bone graft used will be carefully screened for communicable diseases, including AIDS, hepatitis, Yoni-Creutzfeldt, or other diseases, but despite the screening procedures, there is a small chance that they could contract one of these diseases. Finally, the patient was asked to follow completely and fully with all advice and recommended treatments, and that recovery and ultimate outcome are affected by their compliance with recommended treatment. We discussed the risks, benefits and treatment alternatives, and the patient is interested in proceeding with surgery. We will try to set this up as expeditiously as possible. Advanced Care Planning Discussion Advance care planning discussed with:: patient Office Procedures GNS Level of Care Nursing/Assessment Patient Status: Established Patient Nursing Assessment/Reassesment: Medication Reconciliation, Update PMH in EMR and Vital Signs Coordination of Care: Complex Care and Chronic Disease 1-5, Education Complex Pt/Fam, Consent,records obtained, informed consent, Results/Orders obtained and Staff clarify orders Established Patient Charge Established Patient Point Assignment: 95 Established Patient Point Charge: EP Level 3 (80-115) Surgical Proc/IM SQ injection Minor Surgical Procedure: Yes (LEFT KNEE INJECTION) Medication Given Medication Given Medication Given: Yes Documented Dose Given: 1 Route: Infiitration Medication Given Medication Given Medication Given: Yes Documented Dose Given: 4 Route: Infiitration Office Meds methylprednisolone acetate 80 mg/mL suspension for injection Performing Provider: Malik Barakat MD Performing Location: [facility] Administered by: Malik Barakat MD on 01/17/25 11:30 Dose Route Admin Location Dispensed Lot Number Expiration Date Package NDC NDC [employer] 80 mg intra-articular 1 mL [id number] 09/14/26 [address]-8 [id number] [employer] ropivacaine (PF) 2 mg/mL (0.2 %) injection solution Performing Provider: Malik Barakat MD Performing Location: [facility] Administered by: Malik Barakat MD on 01/17/25 11:30 Dose Route Admin Location Dispensed Lot Number Expiration Date Package NDC NDC [employer] 20 mL Infiltration 20 mL [id number] 03/17/27 56087-339-46 [id number] [facility] Intake Visit Data Collection New Patient or Established: Established Patient (seen at [facility] within 3 years) Reason for Visit:: LEFT KNEE INJ/RIGHT TKA FU Seen by Clinical Staff ONLY (RN/MA): No Fans Clerk Required: No PCP or OBGYN visit in last 3 months: Yes Hx Now: No Do You Feel Safe at Home: Yes Authorities Contacted: N/A Questionairres Past Medical History Past Medical History Have you ever been diagnosed with any of the following: Neurological Problems Seizures: No Cardiology Problems Hypercholesterolemia: Yes Congestive Heart Failure: No Hypertension: Yes Varicose Veins: Yes Respiratory Problems Chronic Obstructive Pulmonary Disease (COPD): No Smoking: No Smoking Exposure: No Stomache/Intestinal Problems Hepatitis: No Genital/Urinary Problems Renal Disease: No Kidney Stones: Yes Dialysis: No Reproductive Problems Previous Pregnancies: Yes Musculoskeletal Problems Arthritis: Yes Rheumatoid Arthritis: Yes Osteoporosis: Yes Gout: Yes Fractures: Yes (Left arm) Endocrine Problems Diabetes Mellitus Type 1: No Diabetes Mellitus Type 2: Yes Other Problems Blood Transfusions: No Blood Transfusion Reaction: No Anesthesia Reactions: No Chicken Pox: Yes Measles: Yes Cancer: No Subjective Visit Visit for: follow up visit and knee Immunization / Flu Flu Vaccine in the Last 12 Months: No Flu Vaccine Exclusion Criteria: No Exclusion Criteria History of Present Illness Chief complaint: 4 WEEK F/U Flora is a pleasant 79-year-old female with bilateral knee pain and bilateral knee arthritis. She is status post right total knee replacement and is doing well Pain Pain level (0-10): 8 Pain duration: ALL DAY Pain location: inside (medial) and anterior Pain quality: aching Pain timing: increases with activity Associated signs & symptoms: none Ambulatory data Ambulatory device: walker Treatments Improvement with previous injections: No Improvement with PT: No Improvement with NSAIDS: no Review of Systems Review of Systems: All systems negative unless otherwise noted in HPI.
== END 2025-01-17 11:09 | disposition home or self-care (01) ==
LOC: HODSRG 10:12
PROVIDERS: PCP Internal Medicine; Referring Provider Internal Medicine; Supervising Provider Orthopaedic Surgery Adult Reconstructive Orthopaedic Surgery; Visit Provider Orthopaedic Surgery Adult Reconstructive Orthopaedic Surgery
DX: M17.12 Unilateral primary osteoarthritis, left knee (principal); M25.562 Pain in left knee; M25.561 Pain in right knee; Z96.651 Presence of right artificial knee joint; I10 Essential (primary) hypertension; E11.9 Type 2 diabetes mellitus without complications; Z79.84 Long term (current) use of oral hypoglycemic drugs
CPT/HCPCS: 20610; 99213; J1010; J2795; G0463

== ENCOUNTER → 2025-01-23 | Outpatient (BNVA) | payer OTHER, MEDICAID, SELFPAY | END | disposition home or self-care (01) | PROVIDERS: PCP Internal Medicine; Referring Provider Internal Medicine; Visit Provider Urology | DX: N32.81 Overactive bladder (principal); R10.20 Pelvic and perineal pain unspecified side; R39.198 Other difficulties with micturition; E11.9 Type 2 diabetes mellitus without complications; I10 Essential (primary) hypertension; N39.0 Urinary tract infection, site not specified | CPT/HCPCS: 81003; 99213; G0463 ==